=== PATIENT | male | born 1975 | race Caucasian/White ===

== ENCOUNTER 2021-12-11 15:39 | Inpatient (IN) | payer MEDICARE, SELFPAY ==
[2021-12-11] VITALS (7 sets, daily range): BP systolic 112–125; BP diastolic 71–91; PULSE 52–88; RESP 15–18; TEMP 36.9; O2SAT 97–99; BMI 31.7
--- NOTE | 2021-12-11 15:40 | XRR_ITS ---
PROCEDURE INFORMATION: Exam: XR Chest Exam date and time: 12/11/2021 3:40 PM Age: 46 years old Clinical indication: Pain; Angina pectoris; Additional info: Chest pain TECHNIQUE: Imaging protocol: XR of the chest. Views: 1 view. COMPARISON: MRI Shoulder w/o LEFT* [id number] 11/06/2016 7:19 AM FINDINGS: Lungs: Unremarkable. No consolidation. Pleural spaces: Unremarkable. No pleural effusion. No pneumothorax. Heart/Mediastinum: Unremarkable. No cardiomegaly. Bones/joints: Unremarkable. XR/XR chest 1V portable [id number] IMPRESSION: No acute findings.
--- NOTE | 2021-12-11 15:40 | ECG_ITS ---
[facility] Test Date: 2021-12-11 Pat Name: Bala Alberto Department: Room: 106 Gender: Male Inter Fold Roll Cutter: : 1975 Requested By: Hollis Rogers Order Number: [id number] Tevin MD: Alina Jamil M.D. Measurements Intervals [place] Rate: 63 P: 34 DE: 140 QRS: 63 QRSD: 89 T: 56 QT: 377 QTc: 387 Interpretive Statements SINUS RHYTHM WITH SINUS ARRHYTHMIA No previous ECG available for comparison Electronically Signed On 12-12-2021 5:36:53 EFFICIENCY MANAGER by Alina Jamil M.D. [id number] f
[2021-12-11 15:54] LABS: Basophils # 0.1 10^3/uL (0.0-0.1); Basophils % 0.7 %; Eosinophils # 0.2 10^3/uL (0.0-0.8); Eosinophils % 2.9 %; Hematocrit 43.1 % (42.0-52.0); Lymphocytes # 1.7 10^3/uL (0.8-4.8); Lymphocytes % 23.8 %; Mean Corpuscular HGB Conc 32.5 g/dL (30.0-36.0); Mean Corpuscular Hemoglobin 27.3 pg (28.0-34.0); Mean Corpuscular Volume 84.2 fl (80-94); Monocytes # 0.7 10^3/uL (0.2-0.9); Monocytes % 9.6 %; Neutrophils # 4.38 10^3/uL (1.8-7.7); Neutrophils % 62.7 %; Nucleated Red Blood Cells % 0 %; Platelet Count 252 10^3/cmm (130-400); Red Blood Count 5.12 10^6/uL (4.1-5.3); Red Cell Distribution Width 13.2 % (12.1-15.1)
[2021-12-11 16:30] LABS: Troponin(5th) Baseline 8 ng/L (0-15)
[2021-12-11 16:31] LABS: Alanine Aminotransferase 20 U/L (0-41); Albumin Level 4.5 g/dL (3.5-5.2); Alkaline Phosphatase 126 IU/L (40-130); Anion Gap 14.7 (5-19); Aspartate Amino Transferase 16 U/L (0-40); Blood Urea Nitrogen 13 mg/dL (6-20); Calcium 8.6 mg/dL (8.5-10.5); Carbon Dioxide 25 mmol/L (22-29); Chloride 100 mmol/L (98-107); Globulin 2.2 g/dL (1.3-4.6); Glomerular Filtration Rate 91.7 mL/min (90-130); Glucose 81 mg/dL (65-115); Osmolality Calculated 281 mOsm/kg (285-295); Potassium 3.7 mmol/L (3.5-5.1); Sodium 136 mmol/L (136-145); Total Bilirubin 0.4 mg/dL (0.15-1.2); Total Protein 6.7 g/dL (6.6-8.7)
--- NOTE | 2021-12-11 17:04 | W.ED.CHESTPA ---
HPI - Chest Pain General: Chief Complaint: Chest Pain Stated Complaint: SHARP CHEST PAIN Time Seen by Provider: 12/11/21 15:40 Source: patient Mode of arrival: EMS Limitations: no limitations History of Present Illness: 46-year-old male presents emergency room with complaint of left-sided chest pain. He had this on and off for the last couple of months progressively worsening. 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 Patient has no known coronary artery disease no previous angiograms or stress test he has been into the emergency room at other facilities a couple of times he was supposed to see a mobile sales technician but has not done so. He was at his doctor's office today in [facility] with this history and chest pain he was given 325 of aspirin to chew and nitro he said he did get relief of chest pain with the sublingual nitro. He was also given fentanyl in route by EMS. I was attending to a critical patient when he first arrived when I came in to see the patient he said the chest pain was rapidly worsening again. Since the onset of the symptoms a couple months ago patient has noticed increasing intensity and lower levels of exertion precipitating the chest pain. Today's episode began while he was at rest. MD complaint: chest pain Onset (ago): hour(s) Onset: during rest Pain location: left chest Pain radiation: left arm Severity: moderate Quality: tightness Relieving factors: nitroglycerin and rest Exacerbating factors: exertion Associated symptoms: Reports diaphoresis, dyspnea, nausea and sense of impending doom; Deny abdominal pain, fever(s), leg edema, palpitations, syncope or vomiting Treatment prior to arrival: aspirin and nitroglycerin Review of Systems Const: Reports: diaphoresis; Denies: fever(s) ENMT: Denies: throat pain, ear or mastoid pain, nasal discharge or nasal congestion Card: Denies: palpitations or syncope Resp: Reports: dyspnea GI: Reports: nausea; Denies: abdominal pain or vomiting : Denies: flank pain, dysuria, urinary frequency or urinary urgency Skin/Breast: Denies: rash or pruritus [facility] PFSH: Medical History Chest pain HTN (hypertension) Hypertension Surgical History No significant past surgical history Social History Smoking and tobacco status: never smoked Physical Exam Const: COMMON NORMALS: patient oriented x3 GENERAL APPEARANCE: cooperative, comfortable and well kempt NUTRITIONAL APPEARANCE: obese ORIENTATION/CONSCIOUSNESS: Yes awake, Yes oriented to person, Yes oriented to place and Yes oriented to time HENMT: COMMON NORMALS: normocephalic, atraumatic, hearing grossly normal bilaterally, EAC's normal, TM's normal bilaterally and Normal external nose present HEAD & SCALP: normocephalic and atraumatic NOSE: Normal external nose present EXTERNAL AUDITORY CANAL: EAC's normal TYMPANIC MEMBRANE: TM's normal bilaterally MOUTH: Normal oral and palatal mucosa present, lip normal and tongue normal THROAT: posterior oropharynx normal and tonsils normal Eye: COMMON NORMALS: Equal, round and reactive pupils present, EOMs intact bilaterally, conjunctivae normal and no scleral icterus CONJUNCTIVA: Yes conjunctivae normal PUPIL: Yes Equal, round and reactive pupils present Neck/C-Spine: COMMON NORMALS: no meningeal signs, no JVD and Thyroid normal THYROID: Thyroid normal and asymmetrical Lymph: LYMPHATIC: no lymphadenopathy noted Resp: COMMON NORMALS: normal respiratory effort, No retractions, No use of accessory muscles and clear to auscultation bilaterally AUSCULTATION: clear to auscultation bilaterally Cardio: COMMON NORMALS: no JVD, regular rate, regular rhythm and No murmurs present (Cardio) RATE: regular rate RHYTHM: regular rhythm HEART SOUNDS: no murmurs GI: COMMON NORMALS: Soft to palpation and No hepatosplenomegaly present AUSCULTATION: Yes normoactive bowel sounds PALPATION: Yes Soft to palpation, No Tenderness to palpation present (GI), No Guarding due to palpation present (GI) and Yes No hepatosplenomegaly present : COMMON NORMALS: Yes no CVA tenderness BLADDER/KIDNEY EXAM: Yes no CVA tenderness Back/Pelvis: COMMON NORMALS: no CVA tenderness LUMBAR SPINE/LOWER BACK: Yes normal to inspection Extremity: COMMON NORMALS: normal to inspection, capillary refill normal, no clubbing, cyanosis or edema, no calf tenderness and no pedal edema Neuro: COMMON NORMALS: patient oriented x3 SENSORIUM/ORIENTATION: Yes oriented to person, Yes oriented to place and Yes oriented to time MENINGEAL SIGNS: Yes no meningeal signs Psych: APPEARANCE: Yes well kempt Skin: COMMON NORMALS: no rashes or lesions noted GENERAL SKIN EXAM: no rashes or lesions noted Course Vital Signs: Vital signs: Vital Signs Temperature 98.1 F 12/13/21 08:00 Pulse Rate 55 L 12/13/21 08:00 Respiratory Rate 18 12/13/21 08:00 Blood Pressure 131/80 12/13/21 12:00 Pulse Oximetry 95 12/13/21 12:00 MDM - Chest Pain Medical Decision Making 46-year-old male with intermittent chest pain has been progressively worsening with lower degrees of exertion over the last 2 months. Is been seen several times at other facilities been advised to have a stress test does not yet have it done. Today's pain is relieved by nitro. We will go ahead and admit discussed with hospitalist orders written. Initial cardiac enzymes and EKG unremarkable Medical Records I reviewed the patient's medical records. Lab Data I reviewed the patient's lab results. : 12/13/21 04:30 12/13/21 04:30 Radiology Impressions Chest X-Ray 12/11/21 15:40 IMPRESSION: No acute findings. Laboratory Results WBC 6.7 10^3/uL (4.0-10.0) 12/12/21 03:30 RBC 5.08 10^6/uL (4.1-5.3) 12/12/21 03:30 Hgb 14.1 g/dL (11.7-16.6) 12/12/21 03:30 Hct 43.1 % (42.0-52.0) 12/12/21 03:30 MCV 84.8 fl (80-94) 12/12/21 03:30 MCH 27.8 pg (28.0-34.0) L 12/12/21 03:30 MCHC 32.7 g/dL (30.0-36.0) 12/12/21 03:30 RDW 13.4 % (12.1-15.1) 12/12/21 03:30 Plt Count 241 10^3/cmm (130-400) 12/12/21 03:30 MPV 10.0 fL (7.4-10.4) 12/12/21 03:30 Neut % (Auto) 57.6 % 12/12/21 03:30 Lymph % (Auto) 29.2 % 12/12/21 03:30 [place] % (Auto) 8.6 % 12/12/21 03:30 Eos % (Auto) 3.3 % 12/12/21 03:30 Baso % (Auto) 0.9 % 12/12/21 03:30 Neut # (Auto) 3.86 10^3/uL (1.8-7.7) 12/12/21 03:30 Lymph # (Auto) 2.0 10^3/uL (0.8-4.8) 12/12/21 03:30 [place] # (Auto) 0.6 10^3/uL (0.2-0.9) 12/12/21 03:30 Eos # (Auto) 0.2 10^3/uL (0.0-0.8) 12/12/21 03:30 Baso # (Auto) 0.1 10^3/uL (0.0-0.1) 12/12/21 03:30 Nucleated RBC % (auto) 0 % 12/12/21 03:30 Nucleated RBCs # 0.0 /100WBC 12/12/21 03:30 Sodium 139 mmol/L (136-145) 12/12/21 03:30 Potassium 3.8 mmol/L (3.5-5.1) 12/12/21 03:30 Chloride 103 mmol/L (98-107) 12/12/21 03:30 Carbon Dioxide 23 mmol/L (22-29) 12/12/21 03:30 Anion Gap 16.8 (5-19) 12/12/21 03:30 BUN 14 mg/dL (6-20) 12/12/21 03:30 Creatinine 0.9 mg/dL (0.7-1.2) 12/12/21 03:30 GFR Calculation 91.7 mL/min (90-130) 12/12/21 03:30 Glucose 83 mg/dL (65-115) 12/12/21 03:30 Estimat Average Glucose 103 12/12/21 03:30 Hemoglobin A1c 5.2 % (4.0-6.0) 12/12/21 03:30 Calculated Osmolality 288 mOsm/kg (285-295) 12/12/21 03:30 Calcium 9.4 mg/dL (8.5-10.5) 12/12/21 03:30 Magnesium 2.0 mg/dL (1.7-2.3) 12/12/21 03:30 Total Bilirubin 0.4 mg/dL (0.15-1.2) 12/12/21 03:30 AST 15 U/L (0-40) 12/12/21 03:30 ALT 19 U/L (0-41) 12/12/21 03:30 Alkaline Phosphatase 130 IU/L (40-130) 12/12/21 03:30 Troponin T Baseline 8 ng/L (0-15) 12/11/21 15:46 Troponin T 120 Minute 6.00 ng/L (0-15) 12/11/21 17:42 Delta Troponin T -2.00 ABS# (0-10) L 12/11/21 17:42 Troponin T Hi Sens 6Hr 7.03 ng/L (0-15) 12/11/21 21:22 Troponin T Hi Sens 6Hr Delta -0.97 ng/L (0-12) L 12/11/21 21:22 Total Protein 7.0 g/dL (6.6-8.7) 12/12/21 03:30 Albumin 4.3 g/dL (3.5-5.2) 12/12/21 03:30 Globulin 2.7 g/dL (1.3-4.6) 12/12/21 03:30 Triglycerides 84 mg/dL (0-150) 12/12/21 03:30 Cholesterol 185 mg/dL (0-200) 12/12/21 03:30 LDL Cholesterol, Calc 131 mg/dL (50-129) H 12/12/21 03:30 HDL Cholesterol 37 mg/dL (60-100) L 12/12/21 03:30 LDL/HDL Ratio 3.54 RATIO (0.00-3.22) H 12/12/21 03:30 Cholesterol/HDL Ratio 5.00 mg/dL (1.0-5.00) 12/12/21 03:30 TSH 3.78 uIU/mL (0.27-4.20) 12/12/21 03:30 Discharge Plan Discharge Patient Disposition: Admitted As Inpatient Admit Provider: Loc Munoz Clinical Impression: Stable angina Condition: Stable Discharge Orders: Discharge Order (Routine); Ordered 12/13/21 Ordered By: Loc Munoz Discharge Diet: Regular Discharge Activity: Resume usual activity Coding Level of Care Code ED Dope Weigh Operator for Chg Fwd Exam Comprehensive
[2021-12-11] MEDS: nitroglycerin 1 gm/inch oint Pkt 0.5 INCH TOPICAL (17:25)
[2021-12-11] MEDS: enoxaparin 100 mg/mL Syringe SUBCUT (17:25)
--- NOTE | 2021-12-11 17:40 | ECG_ITS ---
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 Measurements Intervals [place] Rate: 48 P: 51 AL: 144 QRS: 73 QRSD: 86 T: 65 QT: 404 QTc: 363 Interpretive Statements SINUS BRADYCARDIA No previous ECG available for comparison Electronically Signed On 12-12-2021 5:48:07 ACCIDENT EXAMINER by Alina Jamil M.D. [id number]
[2021-12-11] MEDS: morphine 4 mg/mL SDV 1 mL IVP (18:05)
--- NOTE | 2021-12-11 18:09 | PC.NURSE ---
PATIENT STATES THAT HE IS STILL HAVING PAIN. PATIENT HAS CHEST PAIN THAT SEEMS CLENCHING BUT THEN ITS GET BETTER. PATIENT STATES THAT PAIN IS BETTER AFTER NITRO PASTE.PATIENT GIVEN MORPHINE FOR PAIN. NO FURTHER NEEDS AT THIS TIME.
--- NOTE | 2021-12-11 18:33 | P.HP_ITS ---
Providers/Chief Complaint Primary Care Provider: Mare Chen MD Chief Complaint: SHARP CHEST PAIN History of Present Illness Bala Alberto is a 46 year old male with pmh of smoking came in with c/o lt sided chest pain, going in for the last couple of months describes the pain as lt sided sharp,chest pain radiating to lt arm and jaws,brought about mainly by exertion and releived with rest, progressively worsening.He had similar chest pain last night and went today to see his pcp he was given aspirin and SL Nitro with some relief ems was called to send him to the ER, en route he also received Fentanyl. Upon arrival in the ER he was worked up for above mention complain. Pertinent Imaging studies : XR chest:No acute Findings EKG : Sinus Bradycardia Pertinent Labs : WBC : 7 ,Hb:14 Hct : 43, plt : 252 ,Na : 136 , k: 3.7 BUN/SCR : 13/0.9 , Troponin trend :Normal Patient was given Lovenox 100 mg sc * 1 dose in ER as well as Nitopaste and 4 mg Morphine * 1 dose in ER. Review of Systems General: Reports: 10 or more systems reviewed and unremarkable except in HPI and below Const: Denies: fever(s), chills, body aches, change in appetite or diaphoresis Card: Reports: orthopnea and leg pain with exertion; Denies: palpitations, edema or swelling of feet/ankles Resp: Denies: dyspnea, productive cough, wheezing or pain on inspiration GI: Denies: abdominal pain, nausea, vomiting, diarrhea or constipation : Denies: flank pain or difficulty urinating Musc: Denies: back pain, extremity pain or extremity swelling Neuro: Denies: headache(s), difficulty walking or confusion Medications/Allergies Home Medications Medication Instructions Recorded Confirmed Last Taken Type aspirin 81 mg tablet,delayed 81 mg PO DAILY #90 tab 12/11/21 12/12/21 12/11/21 Rx release (Adult Aspirin Regimen) 0900 nitroglycerin 0.4 mg sublingual 0.4 mg SUBLINGUAL Q5M PRN #10 tab 12/11/21 12/12/21 12/11/21 Rx tablet Allergies Allergy/AdvReac Type Severity Reaction Status Date / Time No Known Allergies Allergy Verified 12/12/21 01:59 PFSH Acute PFSH: Medical History (Updated 03/01/22 @ 18:35 by Loc Munoz MD) HTN (hypertension) Surgical History (Updated 12/11/21 @ 17:19 by Hollis Jung DO) No significant past surgical history Social History Smoking and tobacco status: never smoked Vitals/I&O/Wt Last Vital Signs Temp 98.4 F 12/11/21 15:53 Pulse 88 12/11/21 18:08 Resp 15 12/11/21 18:08 BP 114/80 12/11/21 18:08 Pulse Ox 99 12/11/21 18:08 Weight last 48 hrs Weight 97.522 kg Physical Exam Const: COMMON NORMALS: patient oriented x3 HENMT: COMMON NORMALS: normocephalic, atraumatic, hearing grossly normal bilaterally and external ears normal HEAD & SCALP: normocephalic and atraumatic EXTERNAL EAR: Yes external ears normal Eye: COMMON NORMALS: no scleral icterus GENERAL EYE: appearance normal, both eyes and all related structures Chest: COMMONS NORMALS: normal inspection of the chest and normal palpation of entire chest wall CHEST: Yes Symmetrical chest wall rise Resp: COMMON NORMALS: normal respiratory effort, No retractions, No use of acc essory muscles and clear to auscultation bilaterally EFFORT & INSPECTION: Yes symmetric chest movement AUSCULTATION: clear to auscultation bilaterally Cardio: COMMON NORMALS: regular rate, regular rhythm, S1 normal heart sound present, S2 normal heart sound present, No gallops present (Cardio), No murmurs present (Cardio), No rub (Cardio) and Peripheral pulses 2+ throughout RATE: regular rate RHYTHM: regular rhythm HEART SOUNDS: S1 normal heart sound present and S2 normal heart sound present PERIPHERAL PULSES: Peripheral pulses 2+ throughout GI: COMMON NORMALS: Normal to inspection, nondistended, normoactive bowel sounds present, Soft to palpation, non-tender, No hepatosplenomegaly present and no masses AUSCULTATION: Yes normoactive bowel sounds PALPATION: Yes Soft to palpation and Yes No hepatosplenomegaly present RECTAL EXAM: Yes deferred Extremity: COMMON NORMALS: no clubbing, cyanosis or edema and no pedal edema Neuro: COMMON NORMALS: patient oriented x3 Data : 12/12/21 03:30 12/12/21 03:30 A&P Assessment and plan (1) Chest pain: Status: Acute (2) Hypertension: Status: Acute Plan 46 year old male with pmh of smoking came in with c/o lt sided chest pain, going in for the last couple of months describes the pain as lt sided sharp,chest pa in radiating to lt arm and jaws,brought about mainly by exertion and releived with rest, progressively worsening. #Chest Pain : 2D Echo Lipid Panel HbA1C Tele Monitoring Monitor EKG Aspirin, statin , S/L Nitro as needed Possible Stress Test # HTN Blood Pressure well controlled #DVT PPX: On Lovenox #Code Status :Full code Attestations Medical Necessity Statement*: Patient needs to be in hospital for evaluation and management of chest pain. Coding Level of Care Code Acute Family Medicine Physician Assistant for Aldo Fwd Exam Comprehensive Diagnoses Chest pain R07.9 Hypertension I10
--- NOTE | 2021-12-11 21:40 | ECG_ITS ---
[facility] Test Date: 2021-12-11 Pat Name: Bala Alberto Department: Room: 106 Gender: Male Dinkey Operator Slag: : 1975 Requested By: Hollis Rogers Order Number: [id number] Tevin MD: Ton Shi M.D. Measurements Intervals [place] Rate: 48 P: 24 VT: 138 QRS: 74 QRSD: 84 T: 48 QT: 409 QTc: 368 Interpretive Statements SINUS BRADYCARDIA Compared to ECG 12/11/2021 17:26:22 No significant changes Electronically Signed On 12-12-2021 16:06:46 CENTERLESS GRINDER SET UP OPERATOR by Ton Shi M.D. [id number]
[2021-12-11 22:09] LABS: Troponin 5 6HR 7.03 ng/L (0-15)
[2021-12-11 22:16] LABS: Troponin 5 6HR Delta -0.97 ng/L (0-12)
[2021-12-11] MEDS: morphine 4 mg/mL SDV 1 mL 2 MG IVP (22:28)
[2021-12-12] VITALS (35 sets, daily range): BP systolic 84–128; BP diastolic 54–82; PULSE 50–78; RESP 12–38; TEMP 36.2–37.2; O2SAT 94–99
--- NOTE | 2021-12-12 | USCV_ITS ---
Transthoracic Echo Bala Alberto Age: 46 Gender: M : 1975 Exam Date: 12/12/2021 03:36 Ordering Phys: Loc Munoz MD Technologist: EVER [place] [facility] [place]: Chest Pain BP: / HR: 50 Rhythm: Sinus Technical Quality: Adequate MEASUREMENTS (Male / Female) Normal Values 2D ECHO LV Diastolic Diameter PLAX 2.8 cm 4.2 - 5.9 / 3.9 - 5.3 cm LV Systolic Diameter PLAX 1.4 cm IVS Diastolic Thickness 1.0 cm 0.6 - 1.0 / 0.6 - 0.9 cm IVS Systolic Thickness 1.3 cm LVPW Diastolic Thickness 0.9 cm 0.6 - 1.0 / 0.6 - 0.9 cm LVPW Systolic Thickness 0.9 cm LVOT Diameter 2.1 cm LV Ejection Fraction 2D Teich 82.7 % LA Diameter 2.9 cm LA Width 2.7 cm LA Height 4.5 cm RA Width 3.4 cm RA Height 4.3 cm Aorta at Sinotubular Diameter 2.2 cm M-MODE Aortic Annulus Diameter 3.0 cm LA Ao Ratio MM 0.9 MV E Point Septal Separation 0.4 cm DOPPLER AV Peak Velocity 101.0 cm/s LVOT Peak Velocity 67.0 cm/s AV Area Cont Eq vti 3.6 cm squared AV Area Cont Eq pk 2.4 cm squared MV Peak Velocity 71.0 cm/s MV Area PHT 3.7 cm squared Mitral E to A Ratio 1.9 MV E' Velocity 40.0 cm/s Mitral E to MV E' Ratio 8.2 Mitral E to LV E' Lateral Ratio 6.7 Mitral E to LV E' Septal Ratio 10.5 TR Peak Velocity 211.0 cm/s TR Peak Gradient 17.8 mmHg TR Mean Velocity 129.3 cm/s TR Mean Gradient 9.2 mmHg TR Velocity Time Integral 61.6 cm TV Peak E Velocity 62.0 cm/s Right Atrial Pressure 3.0 mmHg Pulmonary Artery Systolic Pressu 20.8 mmHg PV Peak Velocity 118.0 cm/s RV Acceleration Time 0.1 s RV Ejection Time 0.3 s RV AcT/ET 0.2 FINDINGS Left Ventricle Normal left ventricular size. LV systolic function is normal with EF of 55-60 %. No regional wall motion abnormalities. Normal diastolic function Right Ventricle The right ventricle is normal in size and function. Right Atrium The right atrium is normal in size. Left Atrium The left atrium is normal in size. Mitral Valve Structurally normal mitral valve without significant stenosis or prolapse. There is trace mitral regurgitation. Aortic Valve Structurally normal aortic valve without significant sclerosis or stenosis. There is no aortic regurgitation. Tricuspid Valve Structurally normal tricuspid valve without significant stenosis. Trace tricuspid regurgitation. Insufficient TR jet to calculate RVSP Pulmonic Valve Not well visualized Pericardium Normal pericardium without effusion. Aorta Normal ascending aorta dimension. CONCLUSIONS LV systolic function is normal with EF of 55 to 60% Normal diastolic function Trace mitral regurgitation Trace tricuspid regurgitation No comparison studies are available. Ton Shi MD (Electronically Signed) Final Date: 12 December 2021 15:10 S
[2021-12-12 04:02] LABS: Basophils # 0.1 10^3/uL (0.0-0.1); Basophils % 0.9 %; Eosinophils # 0.2 10^3/uL (0.0-0.8); Eosinophils % 3.3 %; Hematocrit 43.1 % (42.0-52.0); Hemoglobin 14.1 g/dL (11.7-16.6); Lymphocytes % 29.2 %; Mean Corpuscular HGB Conc 32.7 g/dL (30.0-36.0); Mean Corpuscular Hemoglobin 27.8 pg (28.0-34.0); Mean Corpuscular Volume 84.8 fl (80-94); Monocytes # 0.6 10^3/uL (0.2-0.9); Monocytes % 8.6 %; Neutrophils # 3.86 10^3/uL (1.8-7.7); Neutrophils % 57.6 %; Nucleated Red Blood Cells % 0 %; Platelet Count 241 10^3/cmm (130-400); Red Blood Count 5.08 10^6/uL (4.1-5.3); Red Cell Distribution Width 13.4 % (12.1-15.1); White Blood Count 6.7 10^3/uL (4.0-10.0)
[2021-12-12 04:20] LABS: Estmated Average Glucose 103; Hemoglobin A1C 5.2 % (4.0-6.0)
[2021-12-12 04:21] LABS: Cholesterol 185 mg/dL (0-200); HDL Cholesterol 37 mg/dL (60-100); LDL Cholesterol Calculated 131 mg/dL (50-129); LDL HDL Ratio 3.54 RATIO (0.00-3.22); Triglycerides 84 mg/dL (0-150)
[2021-12-12 04:46] LABS: Alanine Aminotransferase 19 U/L (0-41); Albumin Level 4.3 g/dL (3.5-5.2); Alkaline Phosphatase 130 IU/L (40-130); Anion Gap 16.8 (5-19); Aspartate Amino Transferase 15 U/L (0-40); Blood Urea Nitrogen 14 mg/dL (6-20); Calcium 9.4 mg/dL (8.5-10.5); Carbon Dioxide 23 mmol/L (22-29); Chloride 103 mmol/L (98-107); Globulin 2.7 g/dL (1.3-4.6); Glomerular Filtration Rate 91.7 mL/min (90-130); Glucose 83 mg/dL (65-115); Osmolality Calculated 288 mOsm/kg (285-295); Potassium 3.8 mmol/L (3.5-5.1); Sodium 139 mmol/L (136-145); Thyroid Stimulating Hormone 3.78 uIU/mL (0.27-4.20); Total Bilirubin 0.4 mg/dL (0.15-1.2)
--- NOTE | 2021-12-12 05:46 | PC.NURSE ---
Patient admitted with chest pain x 2 days worsening yesterday morning. Patient received one doese of morphine IV requested by patient for pain. Patient sleeping most of night. Will continue to monitor.
--- NOTE | 2021-12-12 06:00 | ECG_ITS ---
[facility] Test Date: 2021-12-12 Pat Name: Bala Alberto Department: Room: 106 Gender: Male Electronic Pagination System Operator: : 1975 Requested By: Loc Munoz Order Number: [id number] Tevin MD: Ton Shi M.D. Measurements Intervals [place] Rate: 50 P: 38 [place]: 153 QRS: 69 QRSD: 90 T: 64 QT: 440 QTc: 402 Interpretive Statements SINUS BRADYCARDIA Compared to ECG 12/11/2021 23:44:38 No significant changes Electronically Signed On 12-12-2021 16:06:19 WHEAT AND OATS FLAKE MILLER by Ton Shi M.D. [id number]
--- NOTE | 2021-12-12 07:08 | PC.NURSE ---
recieved report from night baker. reviewed poc. no needs identified at this time
[2021-12-12] MEDS: atorvastatin 40 mg Tablet 20 MG PO (07:44)
[2021-12-12] MEDS: morphine 4 mg/mL SDV 1 mL 2 MG IVP ×3 (07:44→22:29)
[2021-12-12] MEDS: aspirin 81 mg EC Tablet PO (07:45)
[2021-12-12] MEDS: nitroglycerin 0.4 mg sublingual Tablet SUBLINGUAL (07:58)
--- NOTE | 2021-12-12 10:36 | PM.PN ---
Subjective Subjective: Patient was seen and examined this morning, he had another episode of substernal chest pain today this morning, 5-6 in intensity, responded to nitro. Patient is having on and off similar substernal chest pain for 2 to 3 months. It will be prudent to get stress test. Patient agrees to get a stress test done in the morning. Medications: Medication Review Details: Generic Name Dose Route Start Last Admin Trade Name Freq PRN Reason Stop Dose Admin Aspirin 81 mg 12/12/21 09:00 12/12/21 07:45 Aspirin 81 Mg Ec Tablet PO 81 mg DAILY PK Administration Atorvastatin Calci um 20 mg 12/12/21 09:00 12/12/21 07:44 Atorvastatin 40 Mg Tablet PO 20 mg DAILY PK Administration Enoxaparin Sodium 40 mg 12/12/21 18:00 12/12/21 17:49 Enoxaparin 40 Mg /0.4 Ml Syringe SUBCUT 40 mg Q24H PK Administration Morphine Sulfate 2 mg 12/11/21 18:24 12/12/21 15:19 Morphine 4 Mg/Ml Sdv 1 Ml IVP 2 mg Q8H PRN Administration SEVERE PAIN Nitroglycerin 0.4 mg 12/11/21 18:30 12/12/21 07:58 Nitroglycerin 0. 4 Mg Sublingual Ta blet SUBLINGUAL 0.4 mg Q5M PRN Administration chest pain Vitals/I&O/Wt Last Vital Signs Temp 98.9 F 12/12/21 08:00 Pulse 66 12/12/21 08:45 Resp 15 12/12/21 08:45 BP 101/67 12/12/21 08:45 Pulse Ox 95 12/12/21 08:45 12/11/21 12/12/21 12/12/21 22:59 06:59 14:59 Intake Total 212 / 212 Balance 212 / 212 Weight last 48 hrs Weight 97.522 kg Weight 97.522 kg Physical Exam Const: COMMON NORMALS: patient oriented x3 HENMT: COMMON NORMALS: normocephalic, atraumatic, hearing grossly normal bilaterally and external ears normal HEAD & SCALP: normocephalic and atraumatic EXTERNAL EAR: Yes external ears normal Eye: COMMON NORMALS: no scleral icterus GENERAL EYE: appearance normal, both eyes and all related structures Chest: COMMONS NORMALS: normal inspection of the chest and normal palpation of entire chest wall CHEST: Yes Symmetrical chest wall rise Resp: COMMON NORMALS: normal respiratory effort, No retractions, No use of accessory muscles and clear to auscultation bilaterally EFFORT & INSPECTION: Yes symmetric chest movement AUSCULTATION: clear to auscultation bilaterally Cardio: COMMON NORMALS: regular rate, regular rhythm, S1 normal heart sound present, S2 normal heart sound present, No gallops present (Cardio), No murmurs present (Cardio), No rub (Cardio) and Peripheral pulses 2+ throughout RATE: regular rate RHYTHM: regular rhythm HEART SOUNDS: S1 normal heart sound present and S2 normal heart sound present PERIPHERAL PULSES: Peripheral pulses 2+ throughout GI: COMMON NORMALS: Normal to inspection, nondistended, normoactive bowel sounds present, Soft to palpation, non-tender, No hepatosplenomegaly present and no masses AUSCULTATION: Yes normoactive bowel sounds PALPATION: Yes Soft to palpation and Yes No hepatosplenomegaly present RECTAL EXAM: Yes deferred Extremity: COMMON NORMALS: no clubbing, cyanosis or edema and no pedal edema Neuro: COMMON NORMALS: patient oriented x3 Data : 12/12/21 03:30 12/12/21 03:30 A&P Assessment and plan (1) Chest pain: Status: Acute (2) Hypertension: Status: Acute Plan 46 year old male with pmh of smoking came in with c/o lt sided chest pain, going in for the last couple of months describes the pain as lt sided sharp,chest pain radiating to lt arm and jaws,brought about mainly by exertion and releived with rest, progressively worsening. #Chest Pain : 2D Echo Lipid Panel HbA1C Tele Monitoring Monitor EKG Aspirin, statin , S/L Nitro as needed Stress Test AM N.p.o. after midnight #Sinus bradycardia: Continue to monitor on telemetry # HTN Blood Pressure well controlled #DVT PPX: On Lovenox #Code Status :Full code Attestations Medical Necessity Statement*: Patient needs to be in hospital for chest pain management and work-up. Coding Level of Care Code Acute Split And Drum Room Supervisor for [facility] Fwd Exam Comprehensive Diagnoses Chest pain R07.9 Hypertension I10
--- NOTE | 2021-12-12 10:36 | PC.CHAP ---
Pastoral Care Encounter/Spiritual Assessment Type of Contact [] Declined note specialist visit [] Patient/Family/Request visit [] Outpatient visit [] Follow-up visit [] Physician referral [] Code/Alert [x] Routine visit [] Staff referral [] Actively dying [] Patient sleeping [] Family support [] [] Out of room [] Palliative care [] [] Receiving care in room [] Pre-surgical visit [] Trauma [] Long length of stay [] ICU visit [] Other: Relational/Emotional Strength [] Patient feels connected with others/family/visitors/staff [] Distress [] Loneliness/isolation [] Abandonment Spirituality of Patient [] Person of Ericka [] Attends Sikh of their Ericka [] Believes in Prayer [] Reads Bible or Zoroastrian materials [] There are Spiritual issues to be addressed Risk Management Director Interventions [x] Prayer [x] Active listening [x] Non-anxious presence [x] Spiritual/emotional support [] Crisis/trauma care [] Spiritual counseling [] Bereavement support [] Provided bereavement packet [] Provided Bible/devotional materials [] Provided toy/stuffed animal, coloring book to patient or family member [] Provided Communion [] Anointing/Watson [] Salvation [x] Completed spiritual assessment [] Other: Impact on Illness or Injury [] Angry [] Fearful [] Anxious [] Often cries [] Exhaustion [] Unable to work [] Unable to attend baptist [] Unable to walk/stand [] Unable to read [] Unable to drive [] Unable to eat/drink [] Unable to sleep [] Unable to be with family [] Patient intubated [] Other: Summary young man... worried.. advised him we are available any time night or day.... Time spent with patient 10 min
--- NOTE | 2021-12-12 16:05 | ECG_ITS ---
[facility] Test Date: 2021-12-13 Pat Name: Bala Alberto Department: Room: 106 Gender: Male Entry Level Paralegal: Glenda Vargas : 1975 Requested By: Loc Munoz Order Number: [id number] Tevin MD: Alina Jamil M.D. Interpretive Statements NAME OF STUDY: LEXISCAN SESTAMIBI STRESS TEST INDICATION: Chest Pain PROCEDURE: At the baseline, the blood pressure was 109/76 mmHg, oxygen saturation 96% with a heart rate of 50 bpm. The electrocardiogram showed normal sinus rhythm, normal axis normal ST-T's. The Lexiscan was infused over a period of 20 seconds. A total of 0.4 milligrams of Lexiscan was infused. The stress phase was continued for a total of 5 minutes. Heart rate at the end of the stress phase was 78 bpm, oxygen saturation 97% with a blood pressure of 114/79 mmHg. The EKG at the peak infusion revealed sinus rhythm with no significant ST-T wave changes. The study was terminated due to protocol completion. Sestamibi was injected 20 seconds after the Lexiscan infusion. Blood pressure at the end of the recovery phase was 100/78 mmHg, oxygen saturation 96% with a heart rate of 71 beats per minute. CONCLUSION: 1. Normal EKG response to LexiScan infusion. 2. No LexiScan induced chest pain or cardiac arrhythmia. 3. Normal blood pressure and heart rate response. 4. Sestamibi/sestamibi perfusion scan pending; see separate report. Electronically Signed On 12-13-2021 10:57:18 AUGER PRESS OPERATOR by Alina Jamil M.D. [email or web address]
[2021-12-12] MEDS: enoxaparin 40 mg/0.4 mL Syringe SUBCUT (17:49)
[2021-12-13] VITALS (14 sets, daily range): BP systolic 94–131; BP diastolic 57–80; PULSE 46–91; RESP 13–18; TEMP 36.6–36.7; O2SAT 95–98
[2021-12-13 04:45] LABS: Basophils % 0.6 %; Eosinophils # 0.2 10^3/uL (0.0-0.8); Eosinophils % 2.5 %; Hemoglobin 14.2 g/dL (11.7-16.6); Lymphocytes # 1.8 10^3/uL (0.8-4.8); Lymphocytes % 27.6 %; Mean Corpuscular HGB Conc 32.3 g/dL (30.0-36.0); Mean Corpuscular Hemoglobin 27.1 pg (28.0-34.0); Mean Platelet Volume 9.9 fL (7.4-10.4); Monocytes # 0.6 10^3/uL (0.2-0.9); Monocytes % 8.7 %; Neutrophils # 3.88 10^3/uL (1.8-7.7); Neutrophils % 60.4 %; Nucleated Red Blood Cells % 0 %; Platelet Count 231 10^3/cmm (130-400); Red Blood Count 5.24 10^6/uL (4.1-5.3); Red Cell Distribution Width 13.2 % (12.1-15.1); White Blood Count 6.4 10^3/uL (4.0-10.0)
[2021-12-13 05:08] LABS: Alanine Aminotransferase 21 U/L (0-41); Albumin Level 4.3 g/dL (3.5-5.2); Alkaline Phosphatase 121 IU/L (40-130); Anion Gap 13.8 (5-19); Aspartate Amino Transferase 19 U/L (0-40); Blood Urea Nitrogen 14 mg/dL (6-20); Calcium 8.7 mg/dL (8.5-10.5); Carbon Dioxide 25 mmol/L (22-29); Chloride 104 mmol/L (98-107); Creatinine Clr Calc Pharmacy 135.7147; Globulin 2.4 g/dL (1.3-4.6); Glucose 100 mg/dL (65-115); Osmolality Calculated 289 mOsm/kg (285-295); Potassium 3.8 mmol/L (3.5-5.1); Sodium 139 mmol/L (136-145); Total Bilirubin 0.5 mg/dL (0.15-1.2); Total Protein 6.7 g/dL (6.6-8.7)
--- NOTE | 2021-12-13 06:02 | PC.NURSE ---
Frequent safety and comfort rounds continue. Orders and/or nursing care completed as indicated. Patient monitored for response to intervention and treatment verbalizes understanding.. Education provided includes pain medica. Patient and/or technical services representative [ResponseToTeaching]. Will continue to monitor.
[2021-12-13] MEDS: morphine 4 mg/mL SDV 1 mL 2 MG IVP (06:31)
--- NOTE | 2021-12-13 06:38 | PC.NURSE ---
Patient for stress test today. Dye given by Shelfie. Patient informed to drink water. Will continue to monitor.
[2021-12-13] MEDS: regadenoson 0.4 Mg/5 ml Syringe IVP (07:39)
[2021-12-13] MEDS: aspirin 81 mg EC Tablet PO (09:21)
[2021-12-13] MEDS: atorvastatin 40 mg Tablet 20 MG PO (09:21)
--- NOTE | 2021-12-13 11:01 | PC.CHAP ---
Pastoral Care Encounter/Spiritual Assessment Type of Contact [] Declined courtroom reporter visit [] Patient/Family/Request visit [] Outpatient visit [] Follow-up visit [] Physician referral [] Code/Alert [x] Routine visit [] Staff referral [] Actively dying [] Patient sleeping [] Family support [] [] Out of room [] Palliative care [] [x] Receiving care in room [] Pre-surgical visit [] Trauma [] Long length of stay [] ICU visit [] Other: Relational/Emotional Strength [x] Patient feels connected with others/family/visitors/staff [] Distress [] Loneliness/isolation [] Abandonment Spirituality of Patient [x] Person of Ericka [] Attends Sabianism of their Ericka [x] Believes in Prayer [] Reads Bible or Pentecostalism materials [] There are Spiritual issues to be addressed Net Web Application Developer Interventions [x] Prayer [x] Active listening [x] Non-anxious presence [x] Spiritual/emotional support [] Crisis/trauma care [x] Spiritual counseling [] Bereavement support [] Provided bereavement packet [] Provided Bible/devotional materials [] Provided toy/stuffed animal, coloring book to patient or family member [] Provided Communion [] Anointing/[place]kin [] Salvation [x] Completed spiritual assessment [] Other: Impact on Illness or Injury [] Angry [] Fearful [x] Anxious [] Often cries [] Exhaustion [] Unable to work [] Unable to attend protestant [] Unable to walk/stand [] Unable to read [] Unable to drive [] Unable to eat/drink [] Unable to sleep [] Unable to be with family [] Patient intubated [] Other: Summary had a stress test waiting on the doctors report feels good will be going home Time spent with patient 10 mins
--- NOTE | 2021-12-13 11:27 | PM.DCS ---
Discharge Providers Date of Admission: 12/12/21 11:57 Date of Discharge: December 13, 2021 Attending Provider at Admission: Loc Munoz MD Attending Provider at Discharge: Loc Munoz MD Primary Care Provider: Mare Chen MD Diagnoses at Discharge Discharge Diagnosis (1) Chest pain: Status: Acute (2) Hypertension: Status: Acute Reason for Visit Reason for Visit: SHARP CHEST PAIN Hospital Course Hospital Course HPI : 46 year old male with pmh of smoking came in with c/o lt sided chest pain, going in for the last couple of months? describes the pain as lt sided sharp,chest pain radiating to lt arm and jaws,brought about mainly by exertion and releived with rest, progressively worsening.He had similar chest pain last night and went today to see his pcp he was given aspirin and SL Nitro with some relief ems was called to send him to the ER, en route he also received Fentanyl. Upon arrival in the ER he was worked up for above mention complain. Pertinent Imaging studies : XR chest:No acute Findings EKG : Sinus Bradycardia Pertinent Labs : WBC : 7 ,Hb:14 Hct : 43, plt : 252 ,Na : 136 , k: 3.7 BUN/SCR : 13/0.9 , Troponin trend :Normal Patient was given Lovenox 100 mg sc * 1 dose in ER as well as Nitopaste and 4 mg Morphine * 1 dose in ER.. Patient was admitted for the evaluation and management of chest pain: He underwent nuclear stress test during hospital stay as well as 2D echo: 2D echo showed: LV systolic function is normal with EF of 55 to 60% ?Normal diastolic function , ?Trace mitral regurgitation Trace tricuspid regurgitation. Nuclear stress test:Myocardial perfusion imaging is normal.Overall left ventricular systolic function is normal without regional wall motion abnormalities.The left ventricular ejection fraction is normal with a value of 63%. Patient did have an episode of similar chest pain during hospital he responded to nitro. Based on the above work-up chest pain is likely noncardiac. Patient is being discharged on Pepcid as well as sublingual nitro as needed. Patient will continue to follow with his PCP as an outpatient. Patient responded well to the above medical management and is being discharged in stable condition to home. Physical Exam Const: COMMON NORMALS: patient oriented x3 HENMT: COMMON NORMALS: normocephalic, atraumatic, hearing grossly normal bilaterally and external ears normal HEAD & SCALP: normocephalic and atraumatic EXTERNAL EAR: Yes external ears normal Eye: COMMON NORMALS: no scleral icterus GENERAL EYE: appearance normal, both eyes and all related structures Chest: COMMONS NORMALS: normal inspection of the chest and normal palpation of entire chest wall CHEST: Yes Symmetrical chest wall rise Resp: COMMON NORMALS: normal respiratory effort, No retractions, No use of accessory muscles and clear to auscultation bilaterally EFFORT & INSPECTION: Yes symmetric chest movement AUSCULTATION: clear to auscultation bilaterally Cardio: COMMON NORMALS: regular rate, regular rhythm, S1 normal heart sound present, S2 normal heart sound present, No gallops present (Cardio), No murmurs present (Cardio), No rub (Cardio) and Peripheral pulses 2+ throughout RATE: regular rate RHYTHM: regular rhythm HEART SOUNDS: S1 normal heart sound present and S2 normal heart sound present PERIPHERAL PULSES: Peripheral pulses 2+ throughout GI: COMMON NORMALS: Normal to inspection, nondistended, normoactive bowel sounds present, Soft to palpation, non-tender, No hepatosplenomegaly present and no masses AUSCULTATION: Yes normoactive bowel sounds PALPATION: Yes Soft to palpation and Yes No hepatosplenomegaly present RECTAL EXAM: Yes deferred Extremity: COMMON NORMALS: no clubbing, cyanosis or edema and no pedal edema Neuro: COMMON NORMALS: patient oriented x3 Discharge Data Studies Completed and Pending Completed Studies During Hospitalization Category Date Time Status Cardiac Stress Test MIBI [Sestamibi Stress Test Request Exams 12/12/21 16:05 Completed ] Routine XR chest 1V portable [id number] Stat Exams 12/11/21 15:40 Completed NM humberto perf SPECT r/s* [id number] Routine Nuc Med 12/13/21 16:05 Completed CV. echo complete* [id number] Routine Ultrasound 12/12/21 Completed Pending at discharge Category Date Time Status Complete Blood Count w/Auto AM LABS Lab 12/14/21 04:00 Ordered Comprehensive Metabolic Panel AM LABS Lab 12/14/21 04:00 Ordered Radiology Impressions Chest X-Ray 12/11/21 15:40 IMPRESSION: No acute findings. Laboratory Results WBC 6.4 10^3/uL (4.0-10.0) 12/13/21 04:30 RBC 5.24 10^6/uL (4.1-5.3) 12/13/21 04:30 Hgb 14.2 g/dL (11.7-16.6) 12/13/21 04:30 Hct 44.0 % (42.0-52.0) 12/13/21 04:30 MCV 84.0 fl (80-94) 12/13/21 04:30 MCH 27.1 pg (28.0-34.0) L 12/13/21 04:30 MCHC 32.3 g/dL (30.0-36.0) 12/13/21 04:30 RDW 13.2 % (12.1-15.1) 12/13/21 04:30 Plt Count 231 10^3/cmm (130-400) 12/13/21 04:30 MPV 9.9 fL (7.4-10.4) 12/13/21 04:30 Neut % (Auto) 60.4 % 12/13/21 04:30 Lymph % (Auto) 27.6 % 12/13/21 04:30 [place] % (Auto) 8.7 % 12/13/21 04:30 Eos % (Auto) 2.5 % 12/13/21 04:30 Baso % (Auto) 0.6 % 12/13/21 04:30 Neut # (Auto) 3.88 10^3/uL (1.8-7.7) 12/13/21 04:30 Lymph # (Auto) 1.8 10^3/uL (0.8-4.8) 12/13/21 04:30 [place] # (Auto) 0.6 10^3/uL (0.2-0.9) 12/13/21 04:30 Eos # (Auto) 0.2 10^3/uL (0.0-0.8) 12/13/21 04:30 Baso # (Auto) 0.0 10^3/uL (0.0-0.1) 12/13/21 04:30 Nucleated RBC % (auto) 0 % 12/13/21 04:30 Nucleated RBCs # 0.0 /100WBC 12/13/21 04:30 Sodium 139 mmol/L (136-145) 12/13/21 04:30 Potassium 3.8 mmol/L (3.5-5.1) 12/13/21 04:30 Chloride 104 mmol/L (98-107) 12/13/21 04:30 Carbon Dioxide 25 mmol/L (22-29) 12/13/21 04:30 Anion Gap 13.8 (5-19) 12/13/21 04:30 BUN 14 mg/dL (6-20) 12/13/21 04:30 Creatinine 0.8 mg/dL (0.7-1.2) 12/13/21 04:30 GFR Calculation 105.0 mL/min (90-130) 12/13/21 04:30 Glucose 100 mg/dL (65-115) 12/13/21 04:30 Estimat Average Glucose 103 12/12/21 03:30 Hemoglobin A1c 5.2 % (4.0-6.0) 12/12/21 03:30 Calculated Osmolality 289 mOsm/kg (285-295) 12/13/21 04:30 Calcium 8.7 mg/dL (8.5-10.5) 12/13/21 04:30 Magnesium 2.0 mg/dL (1.7-2.3) 12/12/21 03:30 Total Bilirubin 0.5 mg/dL (0.15-1.2) 12/13/21 04:30 AST 19 U/L (0-40) 12/13/21 04:30 ALT 21 U/L (0-41) 12/13/21 04:30 Alkaline Phosphatase 121 IU/L (40-130) 12/13/21 04:30 Troponin T Baseline 8 ng/L (0-15) 12/11/21 15:46 Troponin T 120 Minute 6.00 ng/L (0-15) 12/11/21 17:42 Delta Troponin T -2.00 ABS# (0-10) L 12/11/21 17:42 Troponin T Hi Sens 6Hr 7.03 ng/L (0-15) 12/11/21 21:22 Troponin T Hi Sens 6Hr Delta -0.97 ng/L (0-12) L 12/11/21 21:22 Total Protein 6.7 g/dL (6.6-8.7) 12/13/21 04:30 Albumin 4.3 g/dL (3.5-5.2) 12/13/21 04:30 Globulin 2.4 g/dL (1.3-4.6) 12/13/21 04:30 Triglycerides 84 mg/dL (0-150) 12/12/21 03:30 Cholesterol 185 mg/dL (0-200) 12/12/21 03:30 LDL Cholesterol, Calc 131 mg/dL (50-129) H 12/12/21 03:30 HDL Cholesterol 37 mg/dL (60-100) L 12/12/21 03:30 LDL/HDL Ratio 3.54 RATIO (0.00-3.22) H 12/12/21 03:30 Cholesterol/HDL Ratio 5.00 mg/dL (1.0-5.00) 12/12/21 03:30 TSH 3.78 uIU/mL (0.27-4.20) 12/12/21 03:30 Vitals Last Vital Signs Temp 98.1 F 12/13/21 08:00 Pulse 55 L 12/13/21 08:00 Resp 18 12/13/21 08:00 BP 131/80 12/13/21 08:00 Pulse Ox 96 12/13/21 08:00 Discharge Plan Discharge Patient Disposition: Home Condition: Stable Prescriptions: New acetaminophen 325 mg Tablet 650 mg PO Q6H PRN (Reason: Mild/Mod Pain Or Temp >/= 101) 14 Days Qty: 14 0RF famotidine 20 mg tablet 20 mg PO DAILY Qty: 30 0RF Continued nitroglycerin 0.4 mg tablet, sublingual 0.4 mg sublingual Q5M PRN (Reason: chest pain) 30 Days Qty: 30 1RF Rx Instructions: do not exceed 3 doses per episode Discontinued aspirin [Adult Aspirin Regimen] 81 mg tablet,delayed release (DR/EC) 81 mg PO DAILY Qty: 90 1RF Discharge Orders: Discharge Order (Routine); Ordered 12/13/21 Ordered By: Loc Munoz Referrals: Tanika Sumner NP [Primary Care Provider] - 12/25/21 10:00 am ([facility]) Discharge Diet: Regular Discharge Activity: Resume usual activity Patient Instructions: Famotidine (By mouth) (Acid Controller, Acid Biomass Facilitator, Pepcid AC, Pepcid), Acetaminophen (By mouth), Opioid Safety Discharge Attestations Time Spent in Discharge Care*: greater than 30 min Quality Metrics Clinical Quality Measures [ No reported AMI, CVA or VTE this stay] Coding Level of Care Code Acute Chg FW DC note Exam Comprehensive Diagnoses Chest pain R07.9 Hypertension I10
[2021-12-13] MEDS: acetaminophen 325 mg Tablet 650 MG PO (12:38)
--- NOTE | 2021-12-13 13:35 | PC.NURSE ---
dc'd pts piv. discharge instructions reviewed. new medication pepcid discussed. pt verbalized understanding of all instructions and followup appointments. left with his sister to private vehicle. no episodes of chest pain today.
--- NOTE | 2021-12-13 16:05 | NMCV_ITS ---
NM humberto perf SPECT r/s* [id number] Bala Alberto Age: 46 Gender: M : 1975 Exam Date: 12/13/2021 16:05 Ordering Phys: Loc Munoz MD Technologist: DASH Rust Exam Location: [facility] Indications: CHEST PAIN STRESS TEST [facility] IMAGE PROTOCOL Rest/Stress 1 Lexiscan Day Radiopharmaceutical Dose (mCi) Administration Site Administered by Rest: Tc-99m 11.0 IV DASH Chaidez Sestamibi Stress:Tc-99m 32.9 IV DASH Chaidez Sestamibi Rest: 13-Dec-2021 60 Discovery 630 Stress: 13-Dec-2021 30 Discovery 630 0.4mg Lexiscan. Images obtained in supine and prone position. SPECT RESULTS Technical Quality: Excellent Raw Data Analysis: Normal Image Corrections: No attenuation or motion correction applied Summed Stress Score: 0 Summed Rest Score: 0 Summed Difference Score: 0 PERFUSION FINDINGS SPECT images demonstrate homogeneous tracer distribution throughout the myocardium. FUNCTIONAL RESULTS (calculated via Gated SPECT) Stress Image LV EF (%): 63 Stress EDV (mL):90 TID: 0.92 Stress ESV (mL):33 FUNCTIONAL FINDINGS: The left ventricle is normal in size. Transient Ischemia Dilatation of 0.92. There is normal left ventricular systolic function. The left ventricular ejection fraction is normal with a value of 63%. There is normal left ventricular wall thickening with no regional wall motion abnormality. Normal end-diastolic and end-systolic volumes. IMPRESSIONS 1. Myocardial perfusion imaging is normal. 2. Overall left ventricular systolic function is normal without regional wall motion abnormalities. 3. The left ventricular ejection fraction is normal with a value of 63%. 4. Normal EKG response to Lexiscan infusion. Functional capacity could not be assessed due to pharmacological protocol. 5. Scan indicates low risk for cardiac events. Alina Jamil MD (Electronically Signed) Final Date: 13 December 2021 11:03 S
== END 2021-12-13 13:35 | disposition home or self-care (01) | DRG 313 ==
LOC: ER 17:05 → CSU 18:58
PROVIDERS: Admitting Provider Internal Medicine; Emergency Provider Family Medicine; PCP Nurse Practitioner Family; Visit Provider Internal Medicine
DX: R07.9 Chest pain, unspecified (principal); I10 Essential (primary) hypertension; F17.210 Nicotine dependence, cigarettes, uncomplicated
CPT/HCPCS: 36415; 71045; 78452; 80053; 80061; 83036; 83735; 84443; 84484; 85025; 93005; 93017; 93306; 96372; 96374; 99285; A9500; G0378; J1650; J2270; J2785

== ENCOUNTER → 2021-12-21 11:00 | Outpatient (BNVA) | payer MEDICARE, SELFPAY | PROVIDERS: PCP Nurse Practitioner Family; Visit Provider Nurse Practitioner Family | DX: M25.512 Pain in left shoulder (principal); M25.511 Pain in right shoulder; M25.561 Pain in right knee; W19.XXXA Unspecified fall, initial encounter; S82.101A Unspecified fracture of upper end of right tibia, initial encounter for closed fracture | CPT/HCPCS: 73030; 73562 ==

== ENCOUNTER → 2021-12-25 10:22 | Outpatient (BNVA) | payer MEDICARE, SELFPAY | PROVIDERS: PCP Nurse Practitioner Family; Referring Provider Nurse Practitioner Family; Visit Provider Orthopaedic Surgery | DX: Z20.822 Contact with and (suspected) exposure to COVID-19 (principal); S82.101A Unspecified fracture of upper end of right tibia, initial encounter for closed fracture; X58.XXXA Exposure to other specified factors, initial encounter | CPT/HCPCS: 73560; 73565; 87635 ==

== ENCOUNTER 2021-12-31 15:45 | Inpatient (IN) | payer MEDICARE, SELFPAY ==
[2021-12-28 14:27] VITALS: BMI 32.3
[2021-12-31] VITALS (45 sets, daily range): BP systolic 114–155; BP diastolic 77–116; PULSE 78–105; RESP 12–18; TEMP 36.1–37.3; O2SAT 6–100
--- NOTE | 2021-12-31 | SCC_ITS ---
Procedure done: Diagnostic arthroscopy, partial medial meniscectomy, chondroplasty medial femoral condyle right knee Valgus opening doing wedge osteotomy right tibia 189.2 seconds of fluoroscopic guidance, for a cumulative dose of 4.92 mGy, was provided to Dr. Colvin by the radiology department. C-arm images of the RIGHT knee were saved for the patient's permanent record. [facility]
[2021-12-31] MEDS: acetaminophen 500 mg Tablet 1000 MG PO ×3 (08:31→23:23)
[2021-12-31] MEDS: CELEcoxib 200 mg Capsule 400 MG PO (08:31)
[2021-12-31] MEDS: oxyCODONE 20 mg ER (12 HR) Tablet PO (08:31)
[2021-12-31] MEDS: sodium chloride 0.9% 1,000 ML 30 ML IV (08:32)
--- NOTE | 2021-12-31 09:12 | P.PCN_ITS ---
Documented by User: Robbie Grace CRNA 12/31/21 09:12 PACU note Narrative: VSS, Good respiratory effort, report to TOUR SALES REPRESENTATIVE Exam: awake
--- NOTE | 2021-12-31 09:18 | P.HP_ITS ---
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 Complains of medial joint pain and instability. Here for diagnostic arthroscopy and valgus opening wedge osteotomy Medications/Allergies* Home Medications Medication Instructions Recorded Confirmed Type oxycodone 5 mg tablet 5 mg PO Q4H PRN tab 12/21/21 12/31/21 History Allergies/Adverse Reactions Allergy/AdvReac Type Severity Reaction Status Date / Time No Known Allergies Allergy Verified 12/25/21 09:31 Current Medications: Generic Name Dose Route Start Last Admin Trade Name Freq PRN Reason Stop Dose Admin Sodium Chloride 1,000 mls @ 30 mls/hr 12/31/21 08:15 12/31/21 08:32 Sodium Chloride 0.9% IV 01/01/22 08:14 30 mls/hr .Q24H PK Administration Pertinent History/Comorbid Conditions* Medical History (Updated 12/25/21 @ 11:15 by Lucio Colvin MD) Chest pain HTN (hypertension) Hypertension Surgical History (Updated 12/11/21 @ 17:19 by Hollis Jung DO) No significant past surgical history Social History Smoking and tobacco status: never smoked Pertinent Exam Findings alert, oriented x 3, clear to auscultation bilaterally, regular rate & rhythm and operative site marked Recommendations Surgery/Procedure today Other Plans: Bala has medial joint line pain is suggestive of some mild medial joint space narrowing. We will perform an arthroscopic evaluation and evaluate this. He will undergo an opening wedge osteotomy with perhaps a slight overcorrection beyond anatomic to unload the medial compartment. This will be a fairly large opening wedge and is considered for iliac crest autograft if necessary. Coding Level of Care Code Acute Rn Post Partum for Aldo Edward
--- NOTE | 2021-12-31 09:47 | ANES.PREANE2 ---
Pre-Anesthetic Assessment Height/Weight: Height 1.75 m Weight 99.337 kg Temp Pulse Resp BP Pulse Ox 97.0 F L 81 18 115/78 97 12/31/21 08:06 12/31/21 08:06 12/31/21 08:06 12/31/21 08:06 12/31/21 08:06 Preop Diagnosis: Malunion right proximal tibia Operation Date: 12/31/21 09:35 Proposed Procedures p Valgus Osteotomy of right tibia 97211/s82.201P(Right) - Lucio Colvin MD Familial anesthetic complications: None Was Beta Zeenat taken within 24 hours: N/A Was Clonidine taken within 24 hours: N/A Last intake: Intake Last Liquid Date 12/30/21 Last Liquid Time 23:00 Last Solid Date 12/30/21 Last Solid Time 23:00 Social No alcohol and No tobacco Exam alert, oriented x 3, clear to auscultation bilaterally and regular rate & rhythm Airway Submandibular: within normal limits Cervical ROM: within normal limits Mallampati: Class I Dentition: chipped CV/HEM Coronary Artery Disease and Hypertension GI Gastroesophageal Reflux Disease Metabolic Morbid Obesity Anesthetic Plan ASA status: 2 Anesthesia: General Medications/Allergies Home Medications Medication Instructions Recorded Confirmed Last Taken Type famotidine 20 mg tablet 20 mg PO DAILY #30 tab 12/13/21 12/28/21 12/30/21 Rx nitroglycerin 0.4 mg sublingual 0.4 mg SUBLINGUAL Q5M PRN 30 Days 12/13/21 12/28/21 12/11/21 Rx tablet #30 tab amlodipine 5 mg tablet 5 mg PO DAILY 30 Days #30 tab 12/21/21 12/31/21 12/30/21 Rx celecoxib 100 mg capsule (Celebrex) 100 mg PO BID #60 cap 12/21/21 12/28/21 12/30/21 Rx cyclobenzaprine 10 mg tablet 10 mg PO TID PRN 30 Days #90 tab 12/21/21 12/28/21 12/30/21 Rx oxycodone 5 mg tablet 5 mg PO Q4H PRN tab 12/21/21 12/31/21 12/31/21 History pantoprazole 40 mg tablet,delayed 40 mg PO DAILY 90 Days #90 tab 12/21/21 12/31/21 12/30/21 Rx release (Protonix) Allergies Allergy/AdvReac Type Severity Reaction Status Date / Time No Known Allergies Allergy Verified 12/25/21 09:31 Current Medications Generic Name Dose Route Start Last Admin Trade Name Tessa PRN Reason Stop Dose Admin Sodium Chloride 1,000 mls @ 30 mls/hr 12/31/21 08:15 12/31/21 08:32 Sodium Chloride 0.9% IV 01/01/22 08:14 30 mls/hr .Q24H PK Administration PFSH Anesthesia Medical History Chest pain HTN (hypertension) Hypertension Surgical History No significant past surgical history Social History Smoking and tobacco status: never smoked Data Anesthesia Cardiac Studies: Echocardiogram 12/12/21 Sestamibi Stress Test (Cardiology) 12/12/21
--- NOTE | 2021-12-31 11:36 | PC.NURSE ---
UPDATED FAMILY ABOUT PROCEDURE PROGRESS.
--- NOTE | 2021-12-31 12:11 | XR_ITS ---
WS: [id number] INTRAOPERATIVE TECHNIQUE: 3 Spot fluoroscopic images for intraoperative purposes. FLUOROSCOPY TIME: 189.2 seconds CLINICAL INFORMATION: OR PICS COMPARISON: None. FINDINGS: Postoperative changes medial plate and screw fixation proximal tibia with osteotomy. Hardware appears in good position. XR/XR knee RT 1-2V 98006 IMPRESSION: Images obtained for intraoperative purposes.
--- NOTE | 2021-12-31 13:03 | XRR_ITS ---
PROCEDURE INFORMATION: Exam: XR Right Knee Exam date and time: 12/31/2021 1:16 PM Age: 46 years old Clinical indication: Device placement; Other: Right tibial osteotomy; Prior surgery; Surgery date: Post-operative (0-2 days) TECHNIQUE: Imaging protocol: XR Right knee. Views: 1 or 2 views. COMPARISON: OT XR knee RT 1-2V 53124 12/31/2021 9:35 AM FINDINGS: Bones/joints: Interval placement of ORIF hardware with metallic plate and anchoring screws seen traversing a transverse fracture through the proximal right tibia. Mild joint space narrowing within the medial compartment. Soft tissues: Gas and soft tissue swelling along the anterior knee consistent with recent surgical procedure. XR/XR knee RT 1-2V 61217 IMPRESSION: Intact ORIF hardware in expected alignment traversing a fracture through the proximal right tibia.
--- NOTE | 2021-12-31 13:04 | P.OP_ITS ---
Operative Report Date of procedure: December 31, 2021 Pre-op diagnosis: Preop Diagnosis Malunion right proximal tibia, degenerative joint disease medial tibiofemoral Post-op diagnosis: same Procedure done: Diagnostic arthroscopy, partial medial meniscectomy, chondroplasty medial femoral condyle right knee Valgus opening doing wedge osteotomy right tibia Iliac crest bone graft, major structural Implants: 84 mm Arthrex Contourlock-large plate, 3 proximal 6.5 mm locking screws, 3 distal 4.5 mm locking screws, 10 cc Allosync bone graft Surgeon: Lucio Colvin Anesthesia: General Estimated blood loss (mL): 600 Tourniquet time (min): 96 Findings: The patient has degenerative tearing of the central 30% of his medial meniscus. He had fibrillation fraying over approximately 50% of the cartilage thickness over the medial femoral condyle. His lateral and patellofemoral compartments were pristine. Condition: stable Disposition: PACU Procedure: Bala was taken to the operating room given 2 g of Ancef and a general anesthesia. He was prepped and draped in the supine position with a bump under his right hip and his right leg and right iliac crest exposed. A timeout was performed. Initial attention was paid to the diagnostic arthroscopy. The knee was entered through standard inferior medial and inferior lateral portal. Complete arthroscopy of the knee was performed. The medial compartment was the only compartment revealing abnormalities. He had degenerative tearing of the central 30% of his medial meniscus. Utilizing incisor shaver and Celis and Nephew Werewolf probe the central 30% of the posterior and middle third of the meniscus were debrided back. Areas of fibrillation flaps were identified over the medial femoral condyle but fortunately no exposed subchondral bone was identified. The shaver and Celis and Nephew Werewolf probe were used to debride the condyle back to a stable base. Again note subchondral bone was identified. Arthroscopy equipment was then removed. A 5 cm long incision was made over the anterior medial tibia beginning just below the level of the joint line. The pes anserine tendons were identified and retracted posteriorly. The superficial medial collateral ligament was identified and elevated subperiosteally retracting it posteriorly. Under v isualization of fluoroscopy 2 K wires were driven at approximately a 30 degree angle from the horizontal axis. The soft guide was attached and a osteotomy made advancing the saw to within 1 cm of the posterior lateral cortex. The patellar tendon was protected with a blunt retractor and a Hohmann was passed posterior to the tibia. Osteotomes were used to complete the osteotomy. A valgus stress was applied and the wedged/measuring device was passed medial to lateral and a slightly posteriorly directed position to open the wedge and a slightly anterior lateral position. Intraoperative fluoroscopy was used to verify adequacy of reduction. The Bovie wire was run from the center of the femoral head to the central ankle and the osteotomy was expanded until the wire was centered at the 62% position over the lateral knee joint. An 84 mm Arthrex Contourlock-large plate was applied over the anterior lateral joint. It was fixed proximally with three 6.5 mm locking screws and distally with 3 4.5 mm locking screws. Attention was then focused on the iliac crest. A 5 cm long incision was made posterior and superior to the anterior superior iliac spine. Dissection was carried down with the cautery to the superior iliac crest. An oscillating saw was used and a tricortical bone graft of 3.5 mm and length and approximately centimeter half deep was harvested. Curettes were then used to remove an additional 12 cc of autologous bone graft. On the back table tricortical iliac crest bone graft was divided in to in the sella used to make to wedges. The initial was placed just posterior to the plate. The autologous bone graft was mixed with 10 cc of Allosync bone graft and that graft was packed into the medial and posterior osteotomy. The final bicortical bone graft was then impa cted at anterior to the plate over the anterior lateral tibia. The deep periosteum was free of approximated over the medial tibia with 0 Vicryl. The subcutaneous tissues were closed with a running 2-0 Stratafix and the skin closed with a running 4-0 Sratafix. The deep periosteum was approximated over the iliac crest and the defect with 0 Vicryl. The subcutaneous tissues were closed with a running 2-0 Stratafix and the skin closed with a running 4-0 Sratafix. Xeroflo gauze placed over all incisions. The knee was covered with sterile 4 x 4's Kerlix roll and Emanuel wrap. The bone graft donor site with sterile 4 x 4's ABD pads and Aquaphor dressing. The patient was extubated and taken recovery in stable condition.
--- NOTE | 2021-12-31 13:17 | P.PCN_ITS ---
PACU note Narrative: VSS, Good respiratory effort, report to WIRE PHOTO OPERATOR Exam: awake
--- NOTE | 2021-12-31 13:17 | PM.PACU ---
PACU note Narrative: VSS, Good respiratory effort, report to MANAGER BALANCE Exam: awake
[2021-12-31] MEDS: fentaNYL 50 mcg/mL INJ 2mL IVP ×2 (13:20→13:40)
[2021-12-31] MEDS: meperidine 50 mg/mL INJ 12.5 MG IVP (13:35)
[2021-12-31] MEDS: HYDROmorphone 1 mg/mL INJ 1 mL 0.5 MG IVP ×2 (13:50→14:30)
--- NOTE | 2021-12-31 14:21 | PC.NURSE ---
REPORT RECEIVED FROM Antonette LAWRENCE RN AND CARE TAKEN OVER.
--- NOTE | 2021-12-31 14:56 | ANE.PACU2 ---
Inpatient post-anesthesia follow up: Airway intact: Yes Vital signs: Temperature 97.5 F Pulse Rate 88 Respiratory Rate 16 Blood Pressure 154/104 Pulse Oximetry 96 Oxygen Delivery Me thod Room Air Oxygen Flow Rate Fraction of Inspir ed Oxygen Hydration adequate: Yes Nausea and vomiting: No Pain level: 4 Mental status: Baseline
--- NOTE | 2021-12-31 15:02 | SUR.EXTENDED ---
PT TRANSFERRED TO OPS FOR EXTENDED CARE UNTIL BED BECOMES AVAILABLE IN HOSPITAL.
[2021-12-31] MEDS: morphine 4 mg/mL SDV 1 mL IVP ×5 (15:10→23:24)
[2021-12-31] MEDS: oxyCODONE 5 mg IR Tab/Cap PO ×2 (15:10→21:54)
--- NOTE | 2021-12-31 16:09 | SUR.PHASEI ---
1550: patient taken to room 277-1. patient awake and alert. report called to davis. family present on arrival to room. pt dressing intact, moderate amount of drainage on bandage from pacu. dressing was reinforced as ordered by dr linares. patient on room air. patient transferred himself from [facility] to floor bed.
--- NOTE | 2021-12-31 16:35 | PC.PT ---
Patient currently with uncontrolled pain and unable to participate with physical therapy, will reattempt tomorrow hoping for better pain control at that time.
[2021-12-31] MEDS: sodium chloride 0.9% 1,000 ML 100 ML IV (17:45)
[2021-12-31] MEDS: CELEcoxib 200 mg Capsule PO (20:15)
[2021-12-31] MEDS: cyclobenzaprine 10 mg Tablet PO (20:15)
[2021-12-31] MEDS: gabapentin 300 mg Capsule PO (20:15)
[2022-01-01] VITALS (8 sets, daily range): BP systolic 99–109; BP diastolic 64–69; PULSE 61–78; RESP 16–18; TEMP 36.4–36.9; O2SAT 95–97
[2022-01-01] MEDS: oxyCODONE 5 mg IR Tab/Cap PO (03:11)
[2022-01-01] MEDS: sodium chloride 0.9% 1,000 ML 100 ML IV (03:12)
[2022-01-01] MEDS: morphine 4 mg/mL SDV 1 mL IVP (03:20)
[2022-01-01 05:59] LABS: Hemoglobin 9.9 g/dL (11.7-16.6)
[2022-01-01] MEDS: amlodipine 5 mg Tablet PO (09:20)
[2022-01-01] MEDS: gabapentin 300 mg Capsule PO (09:20)
[2022-01-01] MEDS: famotidine 20 mg Tablet PO (09:20)
[2022-01-01] MEDS: CELEcoxib 200 mg Capsule PO (09:20)
[2022-01-01] MEDS: pantoprazole DR 40 mg Tablet PO (09:20)
[2022-01-01] MEDS: aspirin 325 mg EC Tablet PO (09:21)
[2022-01-01] MEDS: cyclobenzaprine 10 mg Tablet PO ×2 (09:21→14:23)
[2022-01-01] MEDS: acetaminophen 500 mg Tablet 1000 MG PO (09:21)
[2022-01-01] MEDS: oxyCODONE 5 mg IR Tab/Cap 10 MG PO ×2 (10:48→14:23)
--- NOTE | 2022-01-01 13:07 | P.DS_ITS ---
Discharge Providers Date of Admission: 12/31/21 15:45 Date of Discharge: January 01, 2022 Attending Provider at Admission: Lucio Quinonez MD Attending Provider at Discharge: Lucio Quinonez MD Primary Care Provider: Tanika Sumner NP Diagnoses at Discharge Discharge Diagnosis (1) Osteoarthritis of right knee: Status: Acute (2) Closed fracture of right tibia with malunion: Status: Acute (3) Postoperative state: Status: Acute Reason for Visit Reason for Visit: closed fracture of right tibia with malunion Hospital Course Hospital Course Mr. Ablerto is a 46-year-old male admitted with a varus malunion of his tibia and coexistent early medial degenerative joint disease. He underwent a corrective valgus osteotomy on 12/31/2021. Insurance dictated mandatory inpatient admission. He was admitted as a inpatient and by the first postoperative day had reasonable pain control. He was up with his walker independent. He was discharged home on the first postoperative day. Physical Exam Narrative: On the day of discharge the knee incision was clean. They had no drainage. There is minimal swelling in the thigh and knee and the calf. No distal neurovascular deficits were noted Discharge Data Studies Completed and Pending Completed Studies During Hospitalization Category Date Time Status XR knee RT 1-2V 62972 Routine Exams 12/31/21 12:11 Completed XR knee RT 1-2V 91250 Routine Exams 12/31/21 13:03 Completed Pending at discharge Category Date Time Status ES surgery / GI images Routine Exams 12/31/21 09:42 Taken Radiology Impressions Knee X-Ray 12/31/21 13:03 IMPRESSION: Intact ORIF hardware in expected alignment traversing a fracture through the proximal right tibia. Laboratory Results Hgb 9.9 g/dL (11.7-16.6) L 01/01/22 05:32 Vitals Last Vital Signs Temp 98.5 F 01/01/22 11:15 Pulse 64 01/01/22 11:15 Resp 16 01/01/22 11:15 BP 107/69 01/01/22 11:15 Pulse Ox 96 01/01/22 11:15 Discharge Plan Discharge Patient Disposition: Home Condition: Stable Prescriptions: New oxycodone 5 mg Tablet 10 mg PO Q4H PRN (Reason: Moderate Pain) 7 Days 0RF celecoxib 200 mg Capsule 200 mg PO Q12H 14 Days Qty: 28 0RF gabapentin 300 mg Capsule 300 mg PO BID@0900,2100 7 Days 0RF acetaminophen 500 mg Tablet 1,000 mg PO Q8H 14 Days Qty: 84 0RF aspirin 325 mg Tablet,Delayed Release (Dr/Ec) 325 mg PO DAILY Qty: 30 0RF Continued amlodipine 5 mg tablet 5 mg PO DAILY 30 Days Qty: 30 0RF cyclobenzaprine 10 mg tablet 10 mg PO TID PRN (Reason: muscle spasm) 30 Days Qty: 90 1RF pantoprazole [Protonix] 40 mg tablet,delayed release (DR/EC) 40 mg PO DAILY 90 Days Qty: 90 1RF famotidine 20 mg tablet 20 mg PO DAILY Qty: 30 0RF nitroglycerin 0.4 mg tablet, sublingual 0.4 mg sublingual Q5M PRN (Reason: chest pain) 30 Days Qty: 30 1RF Rx Instructions: do not exceed 3 doses per episode Discontinued oxycodone 5 mg tablet 5 mg PO Q4H PRN (Reason: Pain) 0RF celecoxib [Celebrex] 100 mg capsule 100 mg PO BID Qty: 60 3RF Discharge Orders: Discharge Order (Routine); Ordered 01/01/22 Ordered By: Lucio Quinonez Other Ambulatory Orders: DME: Vic (Order) Location: None Selected Ordered By: Lucio Quinonez Referrals: Lucio Quinonez MD [Physician] - 01/15/22 11:00 am Discharge Diet: Advance as tolerated Discharge Activity: Limit activity as instructed Patient Instructions: Opioid Safety Activity Restrictions/Additional Instructions: May remove dressings in 78 hours. Replace with light dressing Okay to shower when incisions free of drainage Apply FirstIce up to 20 min/hr for pain and swelling Take Celebrex twice a day for the next 15 days for pain , discontinue other anti-inflammatories Take Neurontin twice a day for 7 days. Take Tylenol 500mg (2 tabs) as needed 3 times a day for mild pain take oxycodone for breakthrough pain. Exercises per physical therapy. Limited weightbearing (25%) right knn IF HAVE ANY PROBLEMS OR QUESTIONS CALL [facility] HUMAN SERVICE WORKER AT AND ASK TO HAVE DR. QUINONEZ PAGED. Discharge Attestations Time Spent in Discharge Care*: other Quality Metrics Clinical Quality Measures [ No reported AMI, CVA or VTE this stay] Coding Level of Care Code Acute Chg FW DC note Diagnoses Osteoarthritis of right knee M17.11 Closed fracture of right tibia with malunion S82.201P Postoperative state Z98.890
--- NOTE | 2022-01-01 14:16 | PC.NURSE ---
discharge paperwork gone over with pt. all questions answered. medications sent to pharmacy of pts choice. iv removed. catheter tip intact. pt tolerated well. we are just waiting for pts walker to get here. will continue to monitor.
== END 2022-01-01 14:27 | disposition home or self-care (01) | DRG 488 ==
LOC: MEDSURG 15:46
PROVIDERS: Admitting Provider Orthopaedic Surgery; PCP Nurse Practitioner Family; Visit Provider Orthopaedic Surgery
PROC: 0SBC4ZZ Excision of Right Knee Joint, Percutaneous Endoscopic Approach (ICD-10-PCS; principal; 2021-12-31 09:25)
DX: M17.11 Unilateral primary osteoarthritis, right knee (principal); S82.201P Unspecified fracture of shaft of right tibia, subsequent encounter for closed fracture with malunion; X58.XXXD Exposure to other specified factors, subsequent encounter; I10 Essential (primary) hypertension; I25.10 Atherosclerotic heart disease of native coronary artery without angina pectoris; K21.9 Gastro-esophageal reflux disease without esophagitis
CPT/HCPCS: 36415; 73560; 76000; 85018; 97110; 97116; 97161; C1713; C1734; C1762; J0690; J1100; J1170; J1885; J2175; J2250; J2270; J2405; J2704; J3010; J7030

== ENCOUNTER 2022-01-26 15:45 | Emergency (ER) | payer MEDICARE, SELFPAY ==
[2022-01-26 16:00] VITALS: BP 162/85; PULSE 101; RESP 18; TEMP 36.7; O2SAT 99; BMI 31.1
--- NOTE | 2022-01-26 16:15 | W.ED.EXTPRO ---
HPI - Extremity Problem General: Chief complaint: Extremity Injury, Lower Stated complaint: right side and right leg pain Time Seen by Provider: 01/26/22 16:06 History of Present Illness: Patient is up here visiting a friend and he is out of pain medication. Doctor had called some in but the drugstore said they never received the prescription. Patient's been on hydrocodone 10 mg since surgery. Patient had bone graft placed in the left knee after his left leg fracture not heal right had to be rebroken the graft was placed. Patient says it hurts in both areas and is hard for him get any rest. Is follow-up with Dr. Karrie Grace. Associated symptoms: Deny chest pain, fever(s) or rash Review of Systems Const: Denies: fever(s), chills or body aches Eyes: Denies: eye discomfort ENMT: Denies: throat pain Card: Denies: chest pain Resp: Denies: dyspnea GI: Denies: abdominal pain, nausea or vomiting Musc: Reports: joint pain (Right knee) and other (Graft site pain) Skin/Breast: Denies: rash Neuro: Denies: headache(s) Psych: Denies: depression or suicidal ideation PFSH ED PFSH: Medical History Chest pain HTN (hypertension) Hypertension Surgical History No significant past surgical history Social History Smoking and tobacco status: never smoked Physical Exam Const: COMMON NORMALS: no acute distress, patient oriented x3 and alert HENMT: COMMON NORMALS: normocephalic HEAD & SCALP: normocephalic Eye: COMMON NORMALS: EOMs intact bilaterally Neck/C-Spine: COMMON NORMALS: no JVD Resp: COMMON NORMALS: normal respiratory effort and No use of accessory muscles Cardio: COMMON NORMALS: no JVD GI: INSPECTION: Yes normal to inspection Extremity: COMMON NORMALS: normal to inspection and full ROM RIGHT LOWER EXTREMITY: Yes knee joint (Warmth to the right medial aspect the knee were wound is with mild swelling) Right knee: Yes neurovascular exam (Intact) and Yes other (No redness noted to the knee joint) Neuro: COMMON NORMALS: patient oriented x3 SENSORIUM/ORIENTATION: Yes alert Psych: COMMON NORMALS: mental status grossly normal Skin: COMMON NORMALS: no rashes or lesions noted NARRATIVE SKIN EXAM: Graft site incision is healing well with no redness or swelling. GENERAL SKIN EXAM: no rashes or lesions noted Course Vital Signs: Vital signs: Vital Signs Temperature 98.1 F 01/26/22 16:00 Pulse Rate 101 H 01/26/22 16:00 Respiratory Rate 18 01/26/22 16:00 Blood Pressure 162/85 01/26/22 16:00 Pulse Oximetry 99 01/26/22 16:00 MDM - Extremity (Nontraumatic) Medical Decision Making Patient out of pain medication. Prescription mixup between pharmacy and his provider. I went and gave him a prescription to get him through the weekend taking follow-up with orthopedic doctor on Friday Discharge Plan Discharge Patient Disposition: Home Clinical Impression: Inadequate pain control Condition: Stable Prescriptions: New hydrocodone-acetaminophen 5-325 mg tablet 1 - 2 tab PO Q6H PRN (Reason: pain) Qty: 20 0RF No Action amlodipine 5 mg tablet 5 mg PO DAILY 90 Days Qty: 30 0RF cyclobenzaprine 10 mg tablet 10 mg PO TID PRN (Reason: muscle spasm) 30 Days Qty: 90 1RF famotidine 20 mg tablet 20 mg PO DAILY 90 Days Qty: 90 1RF pantoprazole [Protonix] 40 mg tablet,delayed release (DR/EC) 40 mg PO DAILY 90 Days Qty: 90 1RF diclofenac sodium [Voltaren Arthritis Pain] 1 % gel 4 g topical QID Qty: 100 6RF Rx Instructions: apply to single knee, ankle, foot; for foot includes sole/toes/top of foot nitroglycerin 0.4 mg tablet, sublingual 0.4 mg sublingual Q5M PRN (Reason: chest pain) 30 Days Qty: 30 1RF Rx Instructions: do not exceed 3 doses per episode aspirin 325 mg Tablet,Delayed Release (Dr/Ec) 325 mg PO DAILY 30 Days Qty: 30 0RF Discharge Orders: Discharge ED (Routine); Ordered 01/26/22 Ordered By: Harry Mohan Referrals: Tanika Sumner NP [Primary Care Provider] - Discharge Diet: Usual diet Discharge Activity: Increase activity as tolerated Activity Restrictions/Additional Instructions: Follow-up with medical provider as directed. Take medications as prescribed. Return to the ER or your medical provider if condition worsens. Please read and understand discharge instructions. If any questions ask please. Coding Level of Care Code ED Tomography Technologist for Chg Fwd Exam Comprehensive
[2022-01-26] MEDS: HYDROcodone-acetaminophen 7.5-325 mg Tablet 1 TAB PO (16:17)
[2022-01-26 17:30] VITALS: BP 114/86; PULSE 91; RESP 16; O2SAT 98
== END 2022-01-26 17:30 | disposition home or self-care (01) ==
PROVIDERS: Emergency Provider Nurse Practitioner Family; PCP Nurse Practitioner Family
DX: Z76.0 Encounter for issue of repeat prescription (principal); M25.561 Pain in right knee; Z98.890 Other specified postprocedural states; Z79.891 Long term (current) use of opiate analgesic
CPT/HCPCS: 99283

== ENCOUNTER → 2022-01-29 14:47 | Outpatient (BNVA) | payer MEDICARE, SELFPAY | PROVIDERS: PCP Nurse Practitioner Family; Visit Provider Orthopaedic Surgery | DX: Z98.890 Other specified postprocedural states (principal) | CPT/HCPCS: 73560 ==

== ENCOUNTER → 2022-06-11 14:16 | Outpatient (BNVA) | payer MEDICARE, SELFPAY | PROVIDERS: PCP Nurse Practitioner Family; Visit Provider Nurse Practitioner Family | DX: K21.9 Gastro-esophageal reflux disease without esophagitis (principal); I10 Essential (primary) hypertension; Z12.5 Encounter for screening for malignant neoplasm of prostate; K92.1 Melena; R63.4 Abnormal weight loss; I20.8 Other forms of angina pectoris; F32.4 Major depressive disorder, single episode, in partial remission | CPT/HCPCS: 80053; G0103 ==

== ENCOUNTER → 2022-08-26 13:45 | Outpatient (BNVA) | payer MEDICARE, SELFPAY | PROVIDERS: PCP Nurse Practitioner Family; Visit Provider Nurse Practitioner Family | DX: Z79.899 Other long term (current) drug therapy (principal); I10 Essential (primary) hypertension; F41.9 Anxiety disorder, unspecified | CPT/HCPCS: 80053; 80061; 80307 ==

== ENCOUNTER 2023-03-01 14:48 | Emergency (ER) | payer MEDICARE, SELFPAY ==
[2023-03-01 14:49] VITALS: BP 163/98; PULSE 89; RESP 17; TEMP 36.6; O2SAT 99; BMI 32.5
--- NOTE | 2023-03-01 15:22 | ED_ITS ---
HPI - Skin/Abscess/Foreign Bdy General: Chief complaint: Skin/Abscess/Foreign Body Stated complaint: left arm pain/spider bite Time Seen by Provider: 03/01/23 15:00 Source: patient Mode of arrival: ambulatory Limitations: no limitations History of Present Illness: 48-year-old male who states he noticed some area of redness to his left bicep on the inner portion 2 days ago. Believes is an insect bite he started on Bactrim yesterday states had some slight pain and increased redness no fluctuance no drainage she denies any fevers denies any worsening improving factors. Associated symptoms: Deny chills, fever(s), nausea or vomiting Review of Systems Const: Denies: fever(s) or chills ENMT: Denies: throat pain or dental pain Card: Denies: chest pain Resp: Denies: dyspnea GI: Denies: abdominal pain, nausea, vomiting or diarrhea : Denies: dysuria Musc: Denies: neck pain or back pain Skin/Breast: Reports: rash and erythema All/Imm: Denies: urticaria PFSH ED PFSH: Medical History Chest pain HTN (hypertension) Hypertension Surgical History No significant past surgical history Social History Smoking and tobacco status: former smoker Physical Exam Const: COMMON NORMALS: no acute distress, patient oriented x3 and healthy appearing HENMT: COMMON NORMALS: normocephalic and atraumatic HEAD & SCALP: normocephalic and atraumatic Eye: COMMON NORMALS: conjunctivae normal CONJUNCTIVA: Yes conjunctivae normal Neck/C-Spine: COMMON NORMALS: full ROM and supple Chest: COMMONS NORMALS: normal inspection of the chest and normal palpation of entire chest wall Resp: COMMON NORMALS: normal respiratory effort, No retractions, No use of accessory muscles and clear to auscultation bilaterally AUSCULTATION: clear to auscultation bilaterally Cardio: COMMON NORMALS: regular rate, regular rhythm and No murmurs present (Cardio) RATE: regular rate RHYTHM: regular rhythm GI: INSPECTION: Yes normal to inspection Extremity: COMMON NORMALS: full ROM NARRATIVE EXTREMITY EXAM: Area of redness to left inner bicep roughly about 7 cm across no abscess formation no fluctuance no open sore Neuro: COMMON NORMALS: patient oriented x3, moves all extremities and no focal motor deficits Psych: COMMON NORMALS: mental status grossly normal, Normal thought process present and cooperative THOUGHT PROCESS: Normal thought process present Skin: COMMON NORMALS: no rashes or lesions noted GENERAL SKIN EXAM: no rashes or lesions noted Course Vital Signs: Vital signs: Vital Signs Temperature 97.8 F 03/01/23 14:49 Pulse Rate 89 03/01/23 14:49 Respiratory Rate 17 03/01/23 14:49 Blood Pressure 163/98 03/01/23 14:49 Pulse Oximetry 99 03/01/23 14:49 Oxygen Delivery Me thod Room Air 03/01/23 14:49 MDM - Skin/Abscess/Foreign Bdy Medicial Decision Making Patient presents here with cellulitis no signs of abscess his white count is normal did give him vancomycin here we will change his Bactrim to clindamycin he is to follow-up with PCP and return if worsening. Medical Records I reviewed the patient's medical records. Lab Data I reviewed the patient's lab results. 03/01/23 15:23 03/01/23 15:23 Laboratory Results WBC 10.6 10^3/uL (4.0-10.0) H 03/01/23 15:23 RBC 5.45 10^6/uL (4.1-5.3) H 03/01/23 15:23 Hgb 15.4 g/dL (11.7-16.6) 03/01/23 15:23 Hct 48.6 % (42.0-52.0) 03/01/23 15:23 MCV 89.2 fl (80-94) 03/01/23 15:23 MCH 28.3 pg (28.0-34.0) 03/01/23 15: MCHC 31.7 g/dL (30.0-36.0) 03/01/23 15:23 RDW 14.6 % (12.1-15.1) 03/01/23 15:23 Plt Count 238 10^3/cmm (130-400) 03/01/23 15: MPV 8.7 fL (7.4-10.4) 03/01/23 15:23 Neut % (Auto) 76.7 % 03/01/23 15:23 Lymph % (Auto) 13.5 % 03/01/23 15:23 Mccormick % (Auto) 7.3 % 03/01/23 15:23 Eos % (Auto) 1.3 % 03/01/23 15:23 Baso % (Auto) 0.5 % 03/01/23 15: Neut # (Auto) 8.10 10^3/uL (1.8-7.7) H 03/01/23 15:23 Lymph # (Auto) 1.4 10^3/uL (0.8-4.8) 03/01/23 15: Mccormick # (Auto) 0.8 10^3/uL (0.2-0.9) 03/01/23 15: Eos # (Auto) 0.1 10^3/uL (0.0-0.8) 03/01/23: Baso # (Auto) 0.1 10^3/uL (0.0-0.1) 03/01/23 15: Nucleated RBC % (auto) 0 % 03/01/23 15: Nucleated RBCs # 0.0 /100WBC 03/01/23 15: Sodium 135 mmol/L (136-145) L 03/01/23: Potassium 4.0 mmol/L (3.5-5.1) 03/01/23 15: Chloride 98 mmol/L (98-107) 03/01/23 15: Carbon Dioxide 25 mmol/L (22-29) 03/01/23 15:23 Anion Gap 16.0 (5-19) 03/01/23 15:23 BUN 20 mg/dL (6-20) 03/01/23 15:23 Creatinine 0.9 mg/dL (0.7-1.2) 03/01/23 15: GFR Calculation 90.8 mL/min (90-130) 03/01/23 15: Glucose 83 mg/dL (65-115) 03/01/23 15: Calculated Osmolality 282 mOsm/kg (285-295) L 03/01/23: Calcium 9.2 mg/dL (8.5-10.5) 03/01/23 15:23 Discharge Plan Discharge Patient Disposition: Home Clinical Impression: Cellulitis Condition: Stable Prescriptions: New hydrocodone-acetaminophen 5-325 mg tablet 1 tab PO Q6H PRN (Reason: pain) Qty: 14 0RF clindamycin HCl 300 mg capsule 300 mg PO Q8H 7 Days Qty: 21 0RF No Action amlodipine 5 mg tablet 5 mg PO DAILY 90 Days Qty: 90 1RF buspirone 10 mg tablet 10 mg PO TID 90 Days Qty: 270 1RF famotidine 20 mg tablet 20 mg PO DAILY 90 Days Qty: 90 1RF pantoprazole [Protonix] 40 mg tablet,delayed release (DR/EC) 40 mg PO DAILY 90 Days Qty: 90 1RF rizatriptan [Maxalt-PRIOR AUTHORIZATION NURSE] 10 mg tablet,disintegrating See Rx Instructions PO .COMPLEX Qty: 14 6RF Rx Instructions: take 1 tab at onset of headache; if no relief may repeat 1 tab after at least 2 hrs; max = 3 tabs/24 hr PO sertraline [Zoloft] 50 mg tablet 50 mg PO DAILY 90 Days Qty: 90 1RF alprazolam 0.25 mg tablet 0.25 mg PO BID PRN (Reason: anxiety) 30 Days Qty: 60 0RF sulfamethoxazole-trimethoprim [Bactrim DS] 800-160 mg tablet 1 tab PO BID 10 Days Qty: 20 0RF ropinirole 1 mg tablet 1 mg PO TID 30 Days Qty: 90 0RF Rx Instructions: needs appt for further refills. Ama naproxen 500 mg tablet 500 mg PO BID Qty: 10 0RF nitroglycerin 0.4 mg tablet, sublingual 0.4 mg sublingual Q5M PRN (Reason: chest pain) 30 Days Qty: 30 1RF Rx Instructions: do not exceed 3 doses per episode Discharge Orders: Discharge ED (Routine); Ordered 03/01/23 Ordered By: Jones Vaughn Referrals: Tanika Sumner NP [Primary Care Provider] - 1-3 days Discharge Diet: Advance as tolerated Discharge Activity: Resume usual activity Patient Instructions: Cellulitis (ED), Opioid Safety Coding Level of Care Code ED Police Clerk for Aldo Edward
[2023-03-01] MEDS: morphine 4 mg/mL SDV 1 mL IVP (15:27)
[2023-03-01] MEDS: vancomycin 1,000 MG in sodium chloride 0.9% 250 ML 250 MG IV (15:27)
[2023-03-01] MEDS: ondansetron 2 mg/ML SDV 2 mL 4 MG IVP (15:27)
[2023-03-01 15:29] LABS: Basophils # 0.1 10^3/uL (0.0-0.1); Basophils % 0.5 %; Eosinophils # 0.1 10^3/uL (0.0-0.8); Eosinophils % 1.3 %; Hematocrit 48.6 % (42.0-52.0); Hemoglobin 15.4 g/dL (11.7-16.6); Lymphocytes # 1.4 10^3/uL (0.8-4.8); Lymphocytes % 13.5 %; Mean Corpuscular HGB Conc 31.7 g/dL (30.0-36.0); Mean Corpuscular Hemoglobin 28.3 pg (28.0-34.0); Mean Corpuscular Volume 89.2 fl (80-94); Mean Platelet Volume 8.7 fL (7.4-10.4); Monocytes # 0.8 10^3/uL (0.2-0.9); Monocytes % 7.3 %; Neutrophils % 76.7 %; Nucleated Red Blood Cells % 0 %; Platelet Count 238 10^3/cmm (130-400); Red Blood Count 5.45 10^6/uL (4.1-5.3); Red Cell Distribution Width 14.6 % (12.1-15.1); White Blood Count 10.6 10^3/uL (4.0-10.0)
[2023-03-01 15:45] LABS: Blood Urea Nitrogen 20 mg/dL (6-20); Calcium 9.2 mg/dL (8.5-10.5); Carbon Dioxide 25 mmol/L (22-29); Chloride 98 mmol/L (98-107); Glomerular Filtration Rate 90.8 mL/min (90-130); Glucose 83 mg/dL (65-115); Osmolality Calculated 282 mOsm/kg (285-295); Sodium 135 mmol/L (136-145)
[2023-03-01 15:56] VITALS: BP 126/93; O2SAT 97
[2023-03-01] MEDS: HYDROcodone-acetaminophen 5-325 mg Tablet 1 TAB PO (16:20)
[2023-03-01 16:54] VITALS: BP 126/94; PULSE 86; O2SAT 97
== END 2023-03-01 16:55 | disposition home or self-care (01) ==
PROVIDERS: Emergency Provider Emergency Medicine; PCP Nurse Practitioner Family
DX: L03.114 Cellulitis of left upper limb (principal)
CPT/HCPCS: 80048; 85025; 96365; 96375; 99284; J2270; J2405; J3370; J7050

== ENCOUNTER 2023-03-19 06:53 | Emergency (ER) | payer MEDICARE, SELFPAY ==
[2023-03-19] VITALS (7 sets, daily range): BP systolic 97–147; BP diastolic 81–118; PULSE 85–102; RESP 16–22; TEMP 36.8; O2SAT 95–97; BMI 34.0
--- NOTE | 2023-03-19 07:03 | CT_ITS ---
WS: [id number] CT ABDOMEN PELVIS TECHNIQUE: Contrast-enhanced CT of the abdomen and pelvis with coronal and sagittal reformatted image s. CLINICAL INFORMATION: diffuse abdominal pain, N/V/D COMPARISON: CT 2014 DLP: 1109.[address] scans at [facility] use at least one of these dose optimization techniques: automated e xposure control; mA and/or kV adjustment per patient size (includes targeted exams where dose is matc hed to clinical indication); or iterative reconstruction. FINDINGS: Lung bases are well aerated. Mild diffuse fatty infiltration of the liver. Small esophageal hiatal he rnia. Normal spleen. Normal portal vein and splenic vein. Caliber abdominal aorta. Celiac and SMA are patent. Adrenal glands are normal. Normal renal parenchymal enhancement. No hydronephrosis. No free fluid in the abdomen or pelvis. Normal sigmoid colon. Normal appendix in the RIGHT lower quadrant. No evidence of acute appendicitis. No evidence of high-grade small or large bowel obstruction. No abdominal or pelvic lymphadenopathy. N o inguinal lymphadenopathy. Pedicle screw fixation L5-S1 with interbody fusion graft. Slight retrolis thesis L3 on L4 and L4 on L5. Prior bone graft donor site RIGHT iliac wing. CT/CT abdomen pelvis w con* [id number] IMPRESSION: 1. Small esophageal hiatal hernia. 2. Normal appendix in the RIGHT lower quadrant. 3. No free fluid in the abdomen or pelvis. 4. No hydronephrosis in either kidney. 5. Mild compression superior endplate T12 is new from MRI 2018 but has a chron ic appearance with endplate Schmorl's node. 6. No other suspicious findings.
--- NOTE | 2023-03-19 07:04 | ED_ITS ---
Documented by User: REGINO Escalera 03/19/23 09:50 HPI - Abdominal Pain General: Chief Complaint: Abdominal Pain Stated Complaint: N/V/D Time Seen by Provider: 03/19/23 06:58 Source: patient Mode of arrival: EMS Limitations: no limitations History of Present Illness: Patient is a 48-year-old male who presents to ED today with complaint of abdominal pain that began around 10 PM yesterday evening and awoke him from sleep. Patient states he has a history of ulcerative colitis that was diagnosed 20 years ago and states the pain feels similar to this. He has had nausea, vomiting, and diarrhea. He has not been running fevers. He has not noticed any blood in his emesis or stool. Patient denies flank pain. He does not complain of dysuria, or urinary urgency/frequency, or hematuria. He is not having any genital pain or swelling. Denies marijuana use. MD elicited complaint: abdominal pain Onset (ago): hour(s) Pain Consistency: constant Location: RLQ, LLQ and Other (across lower abdomen) Severity: severe Pain scale (0-10): 10 Quality: cramping and stabbing Radiation: none Migration to: no migration Exacerbating factors: nothing Relieving factors: nothing Associated Symptoms: Reports diarrhea, nausea and vomiting; Denies chills, dysuria, fever(s), hematochezia, hematuria, hematemesis and melena Review of Systems Const: Denies: fever(s), chills, body aches, fatigue or malaise Card: Denies: chest pain Resp: Denies: dyspnea GI: Reports: abdominal pain, nausea, vomiting and diarrhea; Denies: hematemesis, hematochezia or melena : Denies: flank pain, difficulty urinating, dysuria, urinary frequency, hematuria, genital pain, testicular pain or scrotal swelling Musc: Denies: neck pain, back pain, extremity pain or joint pain Skin/Breast: Denies: rash Neuro: Denies: headache(s), numbness in extremities, weakness in extremities, sensory changes or dizziness [facility], [facility] ED PFSH: Medical History Chest pain HTN (hypertension) Hypertension Surgical History No significant past surgical history Social History Smoking and tobacco status: former smoker Physical Exam Const: COMMON NORMALS: average body habitus, patient oriented x3, no limitations, alert and well nourished GENERAL APPEARANCE: cooperative and in distress (patient tearful, diaphoretic, writhing/grabbing his abdomen) ORIENTATION/CONSCIOUSNESS: Yes awake, Yes oriented to person, Yes oriented to place and Yes oriented to time HENMT: COMMON NORMALS: normocephalic and atraumatic HEAD & SCALP: normal to inspection, normocephalic and atraumatic Chest: COMMONS NORMALS: normal inspection of the chest and normal palpation of entire chest wall Resp: COMMON NORMALS: normal respiratory effort and clear to auscultation bilaterally AUSCULTATION: clear to auscultation bilaterally Cardio: COMMON NORMALS: regular rhythm RATE: tachycardic RHYTHM: regular rhythm GI: COMMON NORMALS: Normal to inspection, nondistended, normoactive bowel sounds present, Soft to palpation, No hepatosplenomegaly present and no masses INSPECTION: Yes normal to inspection AUSCULTATION: Yes normoactive bowel sounds PALPATION: Yes Soft to palpation, Yes Tenderness to palpation present (GI) (throughout lower abdomen), Yes Guarding due to palpation present (GI) and Yes No hepatosplenomegaly present : COMMON NORMALS: Yes no CVA tenderness BLADDER/KIDNEY EXAM: Yes no CVA tenderness Back/Pelvis: COMMON NORMALS: no CVA tenderness, thoracic and lumbar spine normal to inspection, no thoracic nor lumbar tenderness and thoraco-lumbar ROM normal Extremity: COMMON NORMALS: normal to inspection GENERAL: Yes normal exam except as noted Neuro: TUNG COMA SCALE: document GCS findings Tung coma scale eye opening: Spontaneous Tung coma scale verbal response: Orientated Tung coma scale motor response: Obey commands [place] coma scale total score: 15 COMMON NORMALS: patient oriented x3, moves all extremities, no focal motor deficits and no sensory deficits noted SENSORIUM/ORIENTATION: Yes alert, Yes oriented to person, Yes oriented to place and Yes oriented to time Skin: COMMON NORMALS: no rashes or lesions noted GENERAL SKIN EXAM: no rashes or lesions noted Course Vital Signs: Vital signs: Vital Signs Temperature 98.3 F 03/19/23 06:57 Pulse Rate 88 03/19/23 09:56 Respiratory Rate 16 03/19/23 09:56 Blood Pressure 132/93 03/19/23 09:56 Pulse Oximetry 95 03/19/23 09:56 Oxygen Delivery Me thod Room Air 03/19/23 09:06 MDM - Abdominal Pain Medical Decision Making On re-examination patient feels better. His vital signs are stable. Blood work is non-concerning. CT scan showing no acute findings. Recommend follow-up with his primary care provider later this week for reevaluation. Strict return ED precautions given. Lab Data 03/19/23 07:01 03/19/23 07:01 Labs/Radiology: Radiology Impressions Abdomen/Pelvis CT 03/19/23 07:03 IMPRESSION: 1. Small esophageal hiatal hernia. 2. Normal appendix in the RIGHT lower quadrant. 3. No free fluid in the abdomen or pelvis. 4. No hydronephrosis in either kidney. 5. Mild compression superior endplate T12 is new from MRI 2018 but has a chronic appearance with endplate Schmorl's node. 6. No other suspicious findings. Laboratory Results WBC 9.4 10^3/uL (4.0-10.0) 03/19/23 07:01 RBC 5.40 10^6/uL (4.1-5.3) H 03/19/23 07:01 Hgb 15.2 g/dL (11.7-16.6) 03/19/23 07:01 Hct 47.1 % (42.0-52.0) 03/19/23 07:01 MCV 87.2 fl (80-94) 03/19/23 07:01 MCH 28.1 pg (28.0-34.0) 03/19/23 07:01 MCHC 32.3 g/dL (30.0-36.0) 03/19/23 07:01 RDW 13.5 % (12.1-15.1) 03/19/23 07:01 Plt Count 370 10^3/cmm (130-400) 03/19/23 07:01 MPV 9.4 fL (7.4-10.4) 03/19/23 07:01 Neut % (Auto) 60.2 % 03/19/23 07:01 Lymph % (Auto) 25.2 % 03/19/23 07:01 Barren % (Auto) 9.4 % 03/19/23 07:01 Eos % (Auto) 3.5 % 03/19/23 07:01 Baso % (Auto) 1.1 % 03/19/23 07:01 Neut # (Auto) 5.67 10^3/uL (1.8-7.7) 03/19/23 07:01 Lymph # (Auto) 2.4 10^3/uL (0.8-4.8) 03/19/23 07:01 Barren # (Auto) 0.9 10^3/uL (0.2-0.9) 03/19/23 07:01 Eos # (Auto) 0.3 10^3/uL (0.0-0.8) 03/19/23 07:01 Baso # (Auto) 0.1 10^3/uL (0.0-0.1) 03/19/23 07:01 Nucleated RBC % (auto) 0 % 03/19/23 07:01 Nucleated RBCs # 0.0 /100WBC 03/19/23 07:01 Sodium 138 mmol/L (136-145) 03/19/23 07:01 Potassium 3.7 mmol/L (3.5-5.1) 03/19/23 07:01 Chloride 99 mmol/L (98-107) 03/19/23 07:01 Carbon Dioxide 27 mmol/L (22-29) 03/19/23 07:01 Anion Gap 15.7 (5-19) 03/19/23 07:01 BUN 20 mg/dL (6-20) 03/19/23 07:01 Creatinine 1.1 mg/dL (0.7-1.2) 03/19/23 07:01 GFR Calculation 72.1 mL/min (90-130) L 03/19/23 07:01 Glucose 84 mg/dL (65-115) 03/19/23 07:01 Calculated Osmolality 288 mOsm/kg (285-295) 03/19/23 07:01 Calcium 9.2 mg/dL (8.5-10.5) 03/19/23 07:01 Total Bilirubin 0.2 mg/dL (0.15-1.2) 03/19/23 07:01 AST 20 U/L (0-40) 03/19/23 07:01 ALT 20 U/L (0-41) 03/19/23 07:01 Alkaline Phosphatase 94 U/L (40-130) 03/19/23 07:01 Total Protein 7.6 g/dL (6.6-8.7) 03/19/23 07:01 Albumin 4.5 g/dL (3.5-5.2) 03/19/23 07:01 Globulin 3.1 g/dL (1.3-4.6) 03/19/23 07:01 Lipase 59 U/L (13-60) 03/19/23 07:01 Discharge Plan Discharge Patient Disposition: Home Clinical Impression: Abdominal pain of unknown etiology Condition: Stable Prescriptions: No Action amlodipine 5 mg tablet 5 mg PO DAILY 90 Days Qty: 90 1RF buspirone 10 mg tablet 10 mg PO TID 90 Days Qty: 270 1RF famotidine 20 mg tablet 20 mg PO DAILY 90 Days Qty: 90 1RF pantoprazole [Protonix] 40 mg tablet,delayed release (DR/EC) 40 mg PO DAILY 90 Days Qty: 90 1RF mupirocin calcium 2 % cream 1 applic topical TID Qty: 15 0RF hydrocodone-acetaminophen 5-325 mg tablet 1 tab PO Q6H PRN (Reason: pain) 7 Days Qty: 14 0RF rizatriptan [Maxalt-[employer]ING [employer] MANAGER] 10 mg tablet,disintegrating See Rx Instructions PO .COMPLEX Qty: 14 6RF Rx Instructions: take 1 tab at onset of headache; if no relief may repeat 1 tab after at least 2 hrs; max = 3 tabs/24 hr PO sertraline [Zoloft] 50 mg tablet 50 mg PO DAILY 90 Days Qty: 90 1RF ondansetron HCl 4 mg tablet 4 mg PO Q6H PRN (Reason: nausea and vomiting) Qty: 90 0RF ropinirole 1 mg tablet 1 mg PO TID 30 Days Qty: 90 0RF Rx Instructions: needs appt for further refills. Ama nitroglycerin 0.4 mg tablet, sublingual 0.4 mg sublingual Q5M PRN (Reason: chest pain) 30 Days Qty: 30 1RF Rx Instructions: do not exceed 3 doses per episode Discharge Orders: Discharge ED (Routine); Ordered 03/19/23 Ordered By: Breanna Islas Referrals: Tanika Sumner NP [Primary Care Provider] - Patient Instructions: Abdominal Pain (ED) Activity Restrictions/Additional Instructions: As we discussed please follow-up with your primary care provider in a few days for reevaluation. You may return to the emergency department for severe worsening abdominal pain, continued vomiting or diarrhea, fevers, or any other concerns you may have. I hope you begin to feel better soon. 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[employer] for Chg Fwd Documented by User: Hollis Jung DO 03/19/23 12:11 HPI - Abdominal Pain General: Chief Complaint: Abdominal Pain Stated Complaint: N/V/D Time Seen by Provider: 03/19/23 06:58 [facility] ED PFSH: Medical History Chest pain HTN (hypertension) Hypertension Surgical History No significant past surgical history Social History Smoking and tobacco status: former smoker Physical Exam Neuro: TUNG COMA SCALE: document GCS findings Tung coma scale total score: 15 Course Vital Signs: Vital signs: Vital Signs Temperature 98.3 F 03/19/23 06:57 Pulse Rate 88 03/19/23 09:56 Respiratory Rate 16 03/19/23 09:56 Blood Pressure 132/93 03/19/23 09:56 Pulse Oximetry 95 03/19/23 09:56 Oxygen Delivery Me thod Room Air 03/19/23 09:06 MDM - Abdominal Pain Medical Decision Making On re-examination patient feels better. His vital signs are stable. Blood work is non-concerning. CT scan showing no acute findings. Recommend follow-up with his primary care provider later this week for reevaluation. Strict return ED precautions given. Chart reviewed and patient discussed with midlevel. Agree with assessment and plan. Medical Records I reviewed the patient's medical records. Lab Data I reviewed the patient's lab results. 03/19/23 07:01 03/19/23 07:01 Labs/Radiology: Radiology Impressions Abdomen/Pelvis CT 03/19/23 07:03 IMPRESSION: 1. Small esophageal hiatal hernia. 2. Normal appendix in the RIGHT lower quadrant. 3. No free fluid in the abdomen or pelvis. 4. No hydronephrosis in either kidney. 5. Mild compression superior endplate T12 is new from MRI 2018 but has a chronic appearance with endplate Schmorl's node. 6. No other suspicious findings. Laboratory Results WBC 9.4 10^3/uL (4.0-10.0) 03/19/23 07:01 RBC 5.40 10^6/uL (4.1-5.3) H 03/19/23 07:01 Hgb 15.2 g/dL (11.7-16.6) 03/19/23 07:01 Hct 47.1 % (42.0-52.0) 03/19/23 07:01 MCV 87.2 fl (80-94) 03/19/23 07:01 MCH 28.1 pg (28.0-34.0) 03/19/23 07:01 MCHC 32.3 g/dL (30.0-36.0) 03/19/23 07:01 RDW 13.5 % (12.1-15.1) 03/19/23 07:01 Plt Count 370 10^3/cmm (130-400) 03/19/23 07:01 MPV 9.4 fL (7.4-10.4) 03/19/23 07:01 Neut % (Auto) 60.2 % 03/19/23 07:01 Lymph % (Auto) 25.2 % 03/19/23 07:01 Barren % (Auto) 9.4 % 03/19/23 07:01 Eos % (Auto) 3.5 % 03/19/23 07:01 Baso % (Auto) 1.1 % 03/19/23 07:01 Neut # (Auto) 5.67 10^3/uL (1.8-7.7) 03/19/23 07:01 Lymph # (Auto) 2.4 10^3/uL (0.8-4.8) 03/19/23 07:01 Barren # (Auto) 0.9 10^3/uL (0.2-0.9) 03/19/23 07:01 Eos # (Auto) 0.3 10^3/uL (0.0-0.8) 03/19/23 07:01 Baso # (Auto) 0.1 10^3/uL (0.0-0.1) 03/19/23 07:01 Nucleated RBC % (auto) 0 % 03/19/23 07:01 Nucleated RBCs # 0.0 /100WBC 03/19/23 07:01 Sodium 138 mmol/L (136-145) 03/19/23 07:01 Potassium 3.7 mmol/L (3.5-5.1) 03/19/23 07:01 Chloride 99 mmol/L (98-107) 03/19/23 07:01 Carbon Dioxide 27 mmol/L (22-29) 03/19/23 07:01 Anion Gap 15.7 (5-19) 03/19/23 07:01 BUN 20 mg/dL (6-20) 03/19/23 07:01 Creatinine 1.1 mg/dL (0.7-1.2) 03/19/23 07:01 GFR Calculation 72.1 mL/min (90-130) L 03/19/23 07:01 Glucose 84 mg/dL (65-115) 03/19/23 07:01 Calculated Osmolality 288 mOsm/kg (285-295) 03/19/23 07:01 Calcium 9.2 mg/dL (8.5-10.5) 03/19/23 07:01 Total Bilirubin 0.2 mg/dL (0.15-1.2) 03/19/23 07:01 AST 20 U/L (0-40) 03/19/23 07:01 ALT 20 U/L (0-41) 03/19/23 07:01 Alkaline Phosphatase 94 U/L (40-130) 03/19/23 07:01 Total Protein 7.6 g/dL (6.6-8.7) 03/19/23 07:01 Albumin 4.5 g/dL (3.5-5.2) 03/19/23 07:01 Globulin 3.1 g/dL (1.3-4.6) 03/19/23 07:01 Lipase 59 U/L (13-60) 03/19/23 07:01 Discharge Plan Discharge Patient Disposition: Home Clinical Impression: Abdominal pain of unknown etiology Condition: Stable Prescriptions: No Action amlodipine 5 mg tablet 5 mg PO DAILY 90 Days Qty: 90 1RF buspirone 10 mg tablet 10 mg PO TID 90 Days Qty: 270 1RF famotidine 20 mg tablet 20 mg PO DAILY 90 Days Qty: 90 1RF pantoprazole [Protonix] 40 mg tablet,delayed release (DR/EC) 40 mg PO DAILY 90 Days Qty: 90 1RF mupirocin calcium 2 % cream 1 applic topical TID Qty: 15 0RF hydrocodone-acetaminophen 5-325 mg tablet 1 tab PO Q6H PRN (Reason: pain) 7 Days Qty: 14 0RF rizatriptan [Maxalt-[employer] MANAGER] 10 mg tablet,disintegrating See Rx Instructions PO .COMPLEX Qty: 14 6RF Rx Instructions: take 1 tab at onset of headache; if no relief may repeat 1 tab after at least 2 hrs; max = 3 tabs/24 hr PO sertraline [Zoloft] 50 mg tablet 50 mg PO DAILY 90 Days Qty: 90 1RF ondansetron HCl 4 mg tablet 4 mg PO Q6H PRN (Reason: nausea and vomiting) Qty: 90 0RF ropinirole 1 mg tablet 1 mg PO TID 30 Days Qty: 90 0RF Rx Instructions: needs appt for further refills. Ama nitroglycerin 0.4 mg tablet, sublingual 0.4 mg sublingual Q5M PRN (Reason: chest pain) 30 Days Qty: 30 1RF Rx Instructions: do not exceed 3 doses per episode Discharge Orders: Discharge ED (Routine); Ordered 03/19/23 Ordered By: Breanna Islas Referrals: Tanika Sumner NP [Primary Care Provider] - Patient Instructions: Abdominal Pain (ED) Activity Restrictions/Additional Instructions: As we discussed please follow-up with your primary care provider in a few days for reevaluation. You may return to the emergency department for severe worsening abdominal pain, continued vomiting or diarrhea, fevers, or any other concerns you may have. I hope you begin to feel better soon. 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 for Aldo Edward
[2023-03-19 07:11] LABS: Basophils # 0.1 10^3/uL (0.0-0.1); Basophils % 1.1 %; Eosinophils # 0.3 10^3/uL (0.0-0.8); Eosinophils % 3.5 %; Hematocrit 47.1 % (42.0-52.0); Hemoglobin 15.2 g/dL (11.7-16.6); Lymphocytes # 2.4 10^3/uL (0.8-4.8); Lymphocytes % 25.2 %; Mean Corpuscular HGB Conc 32.3 g/dL (30.0-36.0); Mean Corpuscular Hemoglobin 28.1 pg (28.0-34.0); Mean Corpuscular Volume 87.2 fl (80-94); Mean Platelet Volume 9.4 fL (7.4-10.4); Monocytes # 0.9 10^3/uL (0.2-0.9); Monocytes % 9.4 %; Neutrophils # 5.67 10^3/uL (1.8-7.7); Neutrophils % 60.2 %; Nucleated Red Blood Cells % 0 %; Platelet Count 370 10^3/cmm (130-400); Red Cell Distribution Width 13.5 % (12.1-15.1); White Blood Count 9.4 10^3/uL (4.0-10.0)
[2023-03-19] MEDS: sodium chloride 0.9% 1,000 ML 999 ML IV (07:11)
[2023-03-19] MEDS: HYDROmorphone 1 mg/mL INJ 1 mL IVP (07:12)
[2023-03-19] MEDS: iohexol 350 mg/mL 500 mL Btl (per mL) IV (07:24)
[2023-03-19 07:35] LABS: Alanine Aminotransferase 20 U/L (0-41); Albumin Level 4.5 g/dL (3.5-5.2); Alkaline Phosphatase 94 U/L (40-130); Anion Gap 15.7 (5-19); Aspartate Amino Transferase 20 U/L (0-40); Blood Urea Nitrogen 20 mg/dL (6-20); Calcium 9.2 mg/dL (8.5-10.5); Carbon Dioxide 27 mmol/L (22-29); Chloride 99 mmol/L (98-107); Globulin 3.1 g/dL (1.3-4.6); Glomerular Filtration Rate 72.1 mL/min (90-130); Glucose 84 mg/dL (65-115); Lipase 59 U/L (13-60); Osmolality Calculated 288 mOsm/kg (285-295); Potassium 3.7 mmol/L (3.5-5.1); Sodium 138 mmol/L (136-145); Total Bilirubin 0.2 mg/dL (0.15-1.2); Total Protein 7.6 g/dL (6.6-8.7)
[2023-03-19] MEDS: morphine 4 mg/mL SDV 1 mL IVP (09:03)
== END 2023-03-19 09:57 | disposition home or self-care (01) ==
PROVIDERS: Emergency Provider Physician Assistant; PCP Nurse Practitioner Family
DX: R10.32 Left lower quadrant pain (principal); R10.31 Right lower quadrant pain; I10 Essential (primary) hypertension; Z87.891 Personal history of nicotine dependence
CPT/HCPCS: 74177; 80053; 83690; 85025; 96361; 96374; 96375; 99285; J1170; J2270; J7030; Q9967

== ENCOUNTER 2023-05-22 11:21 | Outpatient (CLI) | payer MEDICARE, SELFPAY ==
--- NOTE | 2023-05-22 12:03 | CT_ITS ---
WS: [id number] CT ABDOMEN AND PELVIS WITH CONTRAST HISTORY: ULCERATIVE PANCOLITIS WITH FISTULA TECHNIQUE: Imaging performed of the abdomen and pelvis with IV contrast. Single phase imaging of the abdomen. Coronal and sagittal reformats are submitted. All CT scans at [facility] use at [facility] [address] one of these dose optimization techniques: automated exposure control; mA and/or kV adjustment per patient size (includes targeted exams where dose is matched to clinical indication); or iterative re construction. IV CONTRAST: Omnipaque 350; 100 mL IV. Oral contrast: Yes. DLP: 820.56 mGy.cm COMPARISON: 03/19/2023 Lower thorax: Lung bases are clear. Heart is normal size. Small hiatal hernia. Liver/biliary system: Normal size with no intrahepatic dilatation. Gallbladder: Normal. No gallstones or wall thickening. No pericholecystic fluid. Pancreas: Normal size pancreas and pancreatic duct. No adjacent inflammation. Spleen: Normal size spleen. No mass or infarct. Adrenal glands: Normal. Right kidney: Normal. Left kidney: Normal. Aorta: Normal. Lymphadenopathy: None. Free fluid: None. GI tract: Normally distended stomach. No small bowel obstruction. Mild diffuse constipation. Normal a ppendix. Mild distal colonic diverticulosis. Mild submucosal fat in the distal colon may be from health associate robyn inflammatory bowel disease. Mild loss of the normal haustral folds in the distal colon. These coretta nges extend from the distal colon to the rectum. Abdominal wall: No soft tissue masses or fluid collections at the level of the umbilicus. No patent u rachus identified. No fistula. Pelvis: No free fluid or adenopathy within the pelvis. Bones: Prior posterior lumbar fusion at L5-S1 with interbody spacer. 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 Sclerotic serpiginous lines without collapse of the femoral heads. IMPRESSION: 1. No soft tissue mass or fluid collection or patent urachus identified. 2. Submucosal fat with loss of the normal haustral folds involving the distal colon. Most typical fo r chronic ulcerative colitis. 3. No acute abdominal or pelvic abnormalities. 4. Early changes of femoral head osteonecrosis.
[2023-05-22] MEDS: iohexol 350 mg/mL 500 mL Btl (per mL) PO (12:59)
[2023-05-22] MEDS: iohexol 350 mg/mL 500 mL Btl (per mL) IV (13:10)
== END 2023-05-22 11:22 | disposition home or self-care (01) ==
PROVIDERS: PCP Nurse Practitioner Family; Visit Provider Internal Medicine
DX: K51.013 Ulcerative (chronic) pancolitis with fistula (principal)
CPT/HCPCS: 74177; Q9967